=== PATIENT | male | born 1950 | race Caucasian/White ===

== ENCOUNTER 2024-10-05 12:55 | Outpatient (CLI) | payer OTHER, SELFPAY ==
[2024-10-05 14:01] LABS: Basophils Percent Auto 0.6 % (0.2-1.2); Eosinophils Absolute Auto 0.2 K/mm3 (0-0.3); Eosinophils Percent Auto 2.4 % (0-4.4); Hematocrit 44.6 % (42.0-52.0); Hemoglobin 15.2 g/dL (14.0-18.0); Immature Granulocyte Absolute 0.09 K/mm3 (0.00-0.031); Immature Granulocyte Percent A 1.3 % (0-0.5); Lymphocytes Absolute Auto 1.12 K/mm3 (0.9-3.2); Lymphocytes Percent Auto 15.8 % (18.3-44.2); Mean Corpuscular HGB Conc 34.1 g/dl (32-36); Mean Corpuscular Hemoglobin 29.9 pg (26-34); Mean Corpuscular Volume 87.8 fl (80-100); Mean Platelet Volume 8.7 fl (7.4-10.4); Monocytes Absolute Auto 0.6 K/mm3 (0.1-0.6); Monocytes Percent Auto 8.7 % (2.6-8.5); Neutrophils Absolute Auto 5.1 K/mm3 (1.3-6.7); Neutrophils Percent Auto 71.2 % (45.5-73.1); Platelet Count Result 197 k/mm3 (150-375); Red Blood Count 5.08 M/mm3 (4.6-6.20); Red Cell Distribution Width 12.7 % (11.5-14.5); White Blood Count 7.1 K/mm3 (4.5-10.0)
[2024-10-05 14:15] LABS: Anion Gap 10 mmol/L (4-12); Blood Urea Nitrogen 26 mg/dL (9-20); Calcium 9.4 mg/dL (8.4-10.2); Carbon Dioxide 26 mmol/L (22-30); Chloride 106 mmol/L (98-107); Estimated Glomerular Filt Rate 56; Glucose 92 mg/dL (65-110); Potassium 4.1 mmol/L (3.4-5.0); Sodium 142 mmol/L (137-145)
== END 2024-10-05 12:56 | disposition home or self-care (01) ==
LOC: ANHSURGERY 13:00
PROVIDERS: Visit Provider Urology
DX: R39.15 Urgency of urination (principal)
CPT/HCPCS: 36415; 80048; 85025; 87086

== ENCOUNTER 2024-12-21 00:07 | Day surgery (SDC) | payer MEDICARE, SELFPAY ==
--- NOTE | 2024-12-13 13:20 | PC.NURSE ---
Report to the Outpatient Waiting Room, entrance under the green pavilion located off [facility], at time _8:30 AM on date _12/21/24 . Planned Procedure Time: _10:30 AM .? Time changes happen often and if your time is changed the preop area will call you the afternoon before. - You and your visitor will be asked to self-screen and do not enter if you have any COVID symptoms. Please call surgeon if you need to reschedule. - A mask is optional within the hospital at this time. Patients may have clear liquids (water, carbonated beverages, clear teas, apple juice) until 3 hours prior to surgery ( 7:30 AM) with a maximum of 20 ounces. - No food from midnight until time of surgery and no smoking, or chewing tobacco (or any form of nicotine). No chewing gum, candy or mints. Take only the following medications with a SIP of water on the morning of surgery: ___METOPROLOL DO NOT STOP ANY OF YOUR OTHER PRESCRIPTION MEDICATIONS PRIOR TO SURGERY EXCEPT THE FOLLOWING Hold all vitamins and supplements for 3 days per anesthesiologist. Medications to discontinue per physician _PT STATES ___ELIQUIS 3 DAYS PRE OP_PER DR HOOVER Date to take last dose 12/17/24 Please no make-up, nail dutch, hairspray, perfume, deodorant, or body powder the day of surgery.? No jewelry (including any body piercings) or valuables the day of surgery, leave them at home.? Please take a shower or bath the night before, or the morning of, surgery with an antibacterial soap.? Wear comfortable, loose fitting clothing.? Children are encouraged to wear pajamas. - Jewelry must be removed prior to entering the operating room.? Rings and piercings that are not removed may be cut off. - The hospital will not accept responsibility for valuables.? - Please leave all valuables, including medications, at home the day of surgery. If you are going home after surgery, a licensed substitute bus driver must drive you home.? - NO public transportation without another adult if you receive anesthesia. - We recommend that an adult stay with you for 24 hours following discharge. - We also recommend that you do not drive, make important decision, drink alcoholic beverages, or take any drugs that were not prescribed by your health care provider for at least 24 hours after your discharge time. For Pediatric surgeries, we recommend two adults accompany the child home. Follow any additional instructions given to you from your surgeon. Telephone instructions given to ___PATIENT and asked if any additional questions and then verbalized understanding. Patient advised to call surgeon office or pre surgery nurse liaison [phone] if any additional questions.
[2024-12-13 14:06] VITALS: BMI 32.3
--- NOTE | 2024-12-20 19:39 | P.PNAN_ITS ---
Anes - Initial Pre Proc Eval Procedure: Operation Date: 12/21/24 10:30 Proposed Procedures p Trans Urethral Resection Bladder Tumor - Juan Cee MD s Cystoscopy, Possible Retrograde with Bilateral Stents Placement - Juan Cee MD Date/Time: 12/20/24 19:39 Surgeon: Juan Cee MD Pre Op Diagnosis: Bladder Lesion Patient Data Age: 74 Gender: M Height: 1.78 m Weight: 102.1 kg Allergies Allergy/AdvReac Type Severity Reaction Status Date / Time No Known Allergies Allergy Verified 12/13/24 13:22 Home Medications ?Medication ?Instructions ?Recorded ?Confirmed ?Type apixaban 5 mg tablet (Eliquis) 5 mg PO Q12H 10/04/24 12/13/24 History dapagliflozin propanediol 10 mg 10 mg PO DAILY 10/04/24 12/13/24 History tablet (Farxiga) metoprolol succinate 50 mg 50 mg PO .MORNING 10/04/24 12/13/24 History tablet,extended release 24 hr oxybutynin chloride 15 mg 15 mg PO DAILY 10/04/24 12/13/24 History tablet,extended release 24 hr sacubitril 24 mg-valsartan 26 mg 1 tablet PO BID 10/04/24 12/13/24 History tablet (Entresto) spironolactone 25 mg tablet 25 mg PO .MORNING 10/04/24 12/13/24 History atorvastatin 80 mg tablet 80 mg PO DAILY 12/13/24 12/13/24 History lisinopril 20 mg tablet 20 mg PO DAILY 12/13/24 12/13/24 History metoprolol succinate 25 mg 25 mg PO DAILY 12/13/24 12/13/24 History tablet,extended release 24 hr Patient hx anesthesia problems: none Family hx anesthesia problems: none Results Review: All pre-operative results and documents have been reviewed as part of the pre- operative evaluation. [facility] Past Medical History Medical History DEBORAH (obstructive sleep apnea) History of heart attack Hypertension CVA (cerebral vascular accident) CAD (coronary artery disease) Atrial fibrillation Surgical History Surgical History History of coronary artery stent placement x3 2012 Social History Social History Smoking status: Never smoker Living arrangements: with family Additional living arrangements comments: SPOUSE Spiritual care concerns: No Anes - Eval Final PreProcedure Day of Procedure 12/20/24 19:39 Patient weight: obese Heart: regular rate and rhythm Lungs: clear to auscultation Airway: Mallampati scale class III Neurological: alert and oriented Last oral intake: >/= 8 hours ASA classification: III Emergent: no Anesthetic plan: proceed Anesthesia type and monitoring: general LMA and standard monitoring Results Review: All pre-operative results and documents have been reviewed as part of the pre- operative evaluation. Informed Consent: The patient's anesthetic plan and its attendant risks and benefits were discussed with the patient/family/POA. Questions were solicited and answers provided to the satisfaction of the patient/family/POA.
[2024-12-21] VITALS (13 sets, daily range): BP systolic 98–137; BP diastolic 76–98; PULSE 69–98; RESP 10–20; TEMP 36.2–37.1; O2SAT 94–100; BMI 33.6
--- NOTE | ~2024-12-21 | XR_ITS ---
EXAMINATION: XR retrograde pyelogram BI DATE: 12/21/2024 11:01 INDICATION: Bilateral retrograde pyelograms TECHNIQUE: 8 fluoroscopic images of the abdomen and pelvis were obtained during procedure performed b filiberto Cee. Radiologist was not present for the imaging or procedure. The amount of fluoroscopy t lashell used during this procedure was 0.4 minutes. Total DAP was 0.732 mGym^2. COMPARISON: None. FINDINGS: Images demonstrate cannulation and retrograde contrast injection into the bilateral ureters and renal collecting system. No hydronephrosis on either the left or right. No filling defects, strictures or urothelial irregularities identified. IMPRESSION: 1. Fluoroscopy utilized during bilateral retrograde pyelogram study demonstrating no filling defects, strictures or urothelial irregularity is. See procedure note for further detail. Reviewed, dictated and finalized at location A. IMPRESSION: 1. Fluoroscopy utilized during bilateral retrograde pyelogram study demonstrati ng no filling defects, strictures or urothelial irregularity is. See procedure note for further detail.
--- OUTSIDE RECORDS SUMMARY | 2024-12-21 00:09 | XMS_ITS | Encounter Summary ---
Author Organization [facility] Address [facility] [place] [address] Care Team Providers Care Regulatory Consultant Name Role Phone Valeriano Steinberg MD Primary Care Provider Sheila Christian MD Unavailable [phone] Rohith Thomas MD Unavailable [phone] Encounter Details Date Type Department Care Team (Late st Contact Info) Description 09/04/2020 Prep for Procedure [facility] [address] [place], [place] [id number] [place] [address] [place] [address] Social History Tobacco Use Types Packs/Day Years Used Date Smoking Tobacco: Never Smokeless Tobacco: Never Alcohol Use Standard Drinks/Week Comments No 0 (1 standard drink = 0.6 oz pur e alcohol) Sex and Gender Information Value Date Recorded Sex Assigned at Male 11/23/2024 1:13 PM CDT Legal Sex Male 9:24 PM CDT Gender Identity Not on file Sexual Orientation Not on file COVID-19 Exposure Response Date Recorded In the last month, have you been in contact with someone who was confirmed or suspected to have Coronavirus / COVID-19? 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 documented as of this encounter Plan of Treatment Upcoming Encounters Date Type Department Care Team (Late st Contact Info) Description 04/21/2025 10:45 AM CDT Office Visit [facility] [address] [place] [id number] Camacho Jenkins MD [address] [place] [id number] documented as of this encounter Results * MRSA SCREENING (09/09/2020 7:59 AM [employer] HA[employer] DRIVER) SPEC DESCRIPTION NASAL 09/09/2020 7:55 AM [employer] HA[employer]MAT DRIVER [facility] SPECIAL REQUESTS NO SPECIAL REQUEST 09/09/2020 7:55 AM [employer] HA[employer] DRIVER [facility] CULTURE RESULT NO MRSA ISOLATED 09/10/2020 11:44 AM [employer] HAZ[employer] DRIVER [facility] SPECIMEN FROM INTERNAL NOSE / Unknown 09/09/2020 7:59 AM [employer] HAZMAT DRIVER 09/09/2020 8:00 AM [employer] HA[employer] DRIVER Fran Austin DO MICROBIOLOGY - GENERAL ORDERABL ES Final Result Performing Organization Address [facility]/State/ZIP Co de Phone Number [facility] [address] [place] [address], * PRE-SURGICAL/PRE-PROCEDURE CORONAVIRUS (COVID 19) (09/09/2020 7:59 AM LOC[employer] HAZMAT DRIVER) CORONAVIRUS SARS COV 2 PCR (RESP) NOT DETECTED NOT DETECTED 09/10/2020 2:37 PM LOC[employer] COMPANY HAZMAT DRIVER [facility] Comment: A Not Detected (negative) test result for this test means that SARS- CoV-2 RNA was not present in the specimen above the limit of detection. A negative result does not rule out the possibility of COVID-19 and should not be used as the sole basis for treatment or patient management decisions. If COVID-19 is still suspected, based on exposure history together with other clinical findings, re-testing should be considered in consultation with public health authorities. Laboratory test results should always be considered in the context of clinical observations and epidemiological data in making a final diagnosis and patient management decisions. Please review the Fact Sheets and FDA authorized labeling available for health care providers and patients using the following websites: [email or web address]://[email or web address]/[email or web address]-[email or web address]/HCP/NAAT/fact-sheet2 [email or web address]://[email or web address].Intrusic/home/Covid-19/Patients/NAAT/ fact-sheet2 This test has been authorized by the FDA under an Emergency Use Authorization (EUA) for use by authorized laboratories. Due to the current public health emergency, [facility] is receiving a high volume of samples from a wide variety of swabs and media for COVID-19 testing. In order to serve patients during this public health crisis, samples from appropriate clinical sources are being tested. Negative test results derived from specimens received in non-commercially manufactured viral collection and transport media, or in media and sample collection kits not yet authorized by FDA for COVID-19 testing should be cautiously evaluated and the patient potentially subjected to extra precautions such as additional clinical monitoring, including collection of an additional specimen. Methodology: Nucleic Acid Amplification Test (NAAT) includes RT-PCR or TMA Additional information about COVID-19 can be found at the [facility] website: www.[facility].Intrusic/Covid19. Test performed at [facility] [id number] [place] [phone] Director: DAI DUNN DO,MPH FIRST TEST NO 09/09/2020 7:54 AM [facility] EMPLOYED IN HEALTHCARE NO 09/09/2020 7:54 AM [facility] SYMPTOMATIC DEFINED BY CDC NO 09/09/2020 7:54 AM [facility] DATE OF SYMPTOM ONSET UNKNOWN 09/09/2020 11:37 AM [facility] HOSPITALIZATION STATUS NO 09/09/2020 7:54 AM [facility] PATIENT IN ICU NO 09/09/2020 7:54 AM [facility] RESIDENT OF [facility] NO 09/09/2020 7:54 AM [facility] UNKNOWN 09/09/2020 11:37 AM [employer] HA[employer]MAT DRIVER [facility] PATIENT'S RACE WHITE OR 09/09/2020 7:54 AM LOC[employer] HAZMAT DRIVER [facility] ETHNICITY NONHISPANIC 09/09/2020 7:54 AM [employer] HAZ[employer] DRIVER [facility] SOURCE (QST) NASOPHARYNGEAL SWAB 09/09/2020 7:54 AM [employer] HAZMAT DRIVER [facility] NASOPHARYNGEAL SWAB / Unknown 09/09/2020 7:59 AM [employer] HAZ[employer] DRIVER us Fran Austin DO MICROBIOLOGY - GENERAL ORDERABL ES Final Result [facility] [address] [place] [address], [facility] [address] [place] [address], documented in this encounter Visit Diagnoses Diagnosis Preop testing- Primary Preoperative examination, unspecified documented in this encounter Additional Health Concerns Infection Onset Date Last Indicated Resolved Time COVID-19 Rule Out 09/09/2020 09/09/2020 09/10/2020 2:38 PM LOCAL COMPANY HAZMAT DRIVER COVID-19 Rule Out 12/26/2021 12/26/2021 12/26/2021 12:33 PM CDT documented as of this encounter Care Teams Regulatory Consultant Relationship Specialty Start Date End Date Valeriano Steinberg MD [address] [place] [address] PCP - General 10/07/17 Rohith Thomas MD [address] [place] [address] PCP - [facility] - [facility] Attributed Provider 11/13/18 09/15/20 Sheila Christian MD [address] [place] [address] CARDIOVASCULAR DISEASE 10/07/17 documented as of this encounter
--- OUTSIDE RECORDS SUMMARY | 2024-12-21 00:09 | XMS_ITS | Encounter Summary ---
Author Organization [facility] Address [facility] [place] [address] Care Team Providers Care Title Closer Name Role Phone Valeriano Steinberg MD Primary Care Provider [phone] Sheila Christian MD Unavailable [phone] Encounter Details Date Type Department Care Team (Late st Contact Info) Description 05/06/2024 Pre-Procedure Call [facility] [address] [place], [place] [phone] Ivelisse Gill RN Social History Tobacco Use Types Packs/Day Years Used Date Smoking Tobacco: Never Passive Smoke Exposure: Never Smokeless Tobacco: Never Comments:Never Smoked Alcohol Use Standard Drinks/Week Comments Not Currently 0 (1 standard drink = 0.6 oz pure alcohol) once a month (if a bbq). 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 Answer Date of Assessment Author Status No 09/12/2020 11:23 AM LAMINATING MACHINE OFFBEARER Acti ve * Do you have serious difficulty walking or climbing stairs? Answer Date of Assessment Author Status No 09/12/2020 11:23 AM Kathryn Palmer RN Active * Do you have difficulty dressing or bathing? Answer Date of Assessment Author Status No 09/12/2020 11:23 AM Kathryn Palmer RN Active * Because of a physical, mental, or emotional condition, do you have difficulty doing errands alone such as visiting a doctor's office or shopping? Answer Date of Assessment Author Status No 09/12/2020 11:23 AM Kathryn Palmer RN Active documented as of this encounter Mental Status * Because of a physical, mental, or emotional condition, do you have serious difficulty concentrating, remembering, or making decisions? 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
--- OUTSIDE RECORDS SUMMARY | 2024-12-21 00:09 | XMS_ITS | Clinical Summary ---
Author Organization [facility] Address [address] [place] [address] Phone Care Team Providers Care Mash Filter Operator Name Role Phone Unavailable Primary Care Provider Unavailabl e Allergies No known active allergies Medications apixaban (ELIQUIS) 5 mg tablet Take by mouth 2 times daily. Active atorvastatin (LIPITOR) 80 mg tablet Take 80 mg by mouth daily. Active oxyBUTYnin (DITROPAN XL) 15 mg Extended Release 24 hour tablet Take 15 mg by mouth daily. Active dapagliflozin propanediol (FARXIGA) 10 mg Tablet Take 10 mg by mouth daily. Active hydrocortisone (CORTAID) 1 % Cream Apply to affected area 2 times daily as needed for Itching. itching Active ketoconazole (NIZORAL) 2 % Cream Apply to affected area 2 times daily. Active spironolactone (ALDACTONE) 25 mg tablet Take 25 mg by mouth daily. Active metoprolol succinate (TOPROL XL) 25 mg Extended Release 24 hour tablet Take 1 Tablet (25 mg) by mouth daily. 30 Tablet 12/02/2024 2:20 PM CDT 12/04/19 25 Active sacubitriL-vals aly (Entresto) 24-26 mg Tablet Take 0.5 Tablets by mouth 2 times daily. 30 Tablet 12/03/19 25 Active metoprolol succinate (TOPROL XL) 50 mg Extended Release 24 hour tablet Take 50 mg by mouth daily. 025 Discontinued sacubitriL-vals aly (Entresto) 24-26 mg Tablet Take by mouth 2 times daily. 025 Discontinued Active Problems Problem Noted Date Diagnosed Date Facial numbness 12/01/2024 Blurry vision 12/01/2024 History of stroke without residual deficits 11/13 Paroxysmal atrial fibrillation 12/01/2024 DEBORAH (obstructive sleep apnea) 12/01/2024 Combined systolic and diastolic heart failure Pre-syncope 12/01/2024 Coronary artery disease Hypertension CRI (chronic renal insufficiency) Encounters Date Type Department Care Team Description 12/07/2024 External Device Data STL ABSTRACTION Provider, Abstract 12/07/2024 External Device Data ST[facility] ABSTRACTION Provider, Abstract 12/07/2024 External Device Data ST[facility] ABSTRACTION Provider, Abstract 12/01/2024 3:50 AM CDT - 12/02/2024 2:18 PM CDT Hospital Encounter [facility] [address] [address] Geri Shin DO Song, Caroline, MD Facial numbness Discharge Disposition: Home or Self Care 12/01/2024 Travel from Last 3 Months Social History Tobacco Use Types Packs/Day Years Used Date Smoking Tobacco: Never Smokeless Tobacco: Never Tobacco Cessation:Counseling Given: Not Answered Feeling Safe Answer Date Recorded Are you in a relationship wi th someone who hurts you emotionally and/or physically? No 12/01/2024 Food Insecurity Answer Date Recorded Social/Environmental Concerns No concerns Transportation Needs Answer Date Record ed Social/Environmental Concerns No concerns Housing Stability Answer Date Recorded Social/Environmental Concerns No concerns Utility Needs Answer Date Recorded Social/Environmental Concerns No concerns Sex and Gender Information Value Date Recorded Sex Assigned at Not on file Legal Sex Male 11:49 PM CDT Gender Identity Not on file Sexual Orientation Not on file Last Filed Vital Signs Vital Sign Reading Time Taken Comments Blood Pressure 121/64 12/02/2024 6:54 AM CDT Pulse 64 12/02/2024 6:54 AM CDT Temperature 36.6 C (97.9 F) 12/02/2024 6:54 AM CDT Respiratory Rate 16 12/02/2024 6:54 AM CDT Oxygen Saturation 96% 12/02/2024 6:54 AM CDT Inhaled Oxygen Concentration - - Weight 61.2 kg (134 lb 14.4 oz) 12/02/2024 5:00 AM CDT Height 177.8 cm (5' 10 ) 12/01/2024 4:13 PM CDT Body Mass Index 19.36 12/01/2024 4:13 PM CDT Plan of Treatment Health Maintenance Due Date Last Done Comments DTAP/TDAP/TD VACCINES (1 - Tdap) 1969 COLORECTAL SCREENING 1995 Colorectal Cancer Screening 1995 FIT-DNA Q 3 years 1995 FIT/FOBT Q 1 year 1995 Flex Sig/CT Colonography Q 5 years 1995 PNEUMOCOCCAL VACCINE 50+ YEARS (1 of 1 - PCV) 01/06/20 ZOSTER VACCINE (1 of 2) 01/06/2000 RSV VACCINE (60+ or ) (1 - Risk 60-74 years 1-dose series) 2010 INFLUENZA VACCINE (#1) 2024 Medical Devices Implanted Type Area Security Operations Engineer Device Identifier Shelf Expiration Date Model / Serial / Lot Stent Stent Heart Procedures Procedure Name Priority Date/Time Associated Diagnosis Comments TELEMETRY REPORT 12/03/2024 9:47 AM CDT COMPREHENSIVE METABOLIC PANEL Routine 12/02/2024 4:58 AM CDT CBC WITH DIFFERENTIAL Routine 12/02/2024 4:58 AM CDT MRI BRAIN WO CONTRAST Routine 12/01/2024 5:41 PM CDT TRANSGLUTAMINASE AB IGG/IGA Routine 12/01/2024 1:29 PM CDT ANCA VASCULITIDES WITH MPO AND PR3 Routine 12/01/2024 1:29 PM CDT CHRISTOPHER SCREEN W/REFLEX Routine 12/01/2024 1 :29 PM CDT GARY ANTIBODIES (SM AND SM/PSYCHIATRIC THERAPIST) Routine 12/01/2024 1:29 PM CDT ANGIOTENSIN CONVERTING ENZYME Routine 12/01/2024 1:29 PM CDT TSH REFLEXIVE Routine 12/01/2024 1:29 PM CDT VITAMIN B12 AND FOLATE Routine 5 1:29 PM CDT TROPONIN 6 HR, 5TH GEN Timed Study 5 10:41 AM CDT POC GLUCOSE Routine 12/01/2024 8:48 AM CDT TROPONIN 2 HR, 5TH GEN Timed Study 5 6:59 AM CDT TROPONIN BASELINE, 5TH GEN Stat 12/01/2024 5:01 AM CDT LIPID PANEL Routine 12/01/2024 5:01 AM CDT HEMOGLOBIN A1C Routine 12/01/2024 5:01 AM CDT TROPONIN BASELINE, 5TH GEN Stat 12/01/2024 5:01 AM CDT PT EVAL AND TREAT Routine 12/01/2024 4:5 0 AM CDT OT EVAL AND TREAT Routine 12/01/2024 4:5 0 AM CDT from Last 3 Months Results * TELEMETRY REPORT (12/03/2024 9:47 AM CDT) us Provider Scanning ECG ORDERABLES Final Result * (ABNORMAL) CBC WITH DIFFERENTIAL (12/02/2024 4:58 AM CDT) [facility] WBC 4.7 4.0 - 11.0 K/uL 12/02/2024 5:26 AM CDT [facility] [place] RBC 4.93 4.60 - 6.20 M/uL 12/02/2024 5:26 AM CDT [facility] HEMOGLOBIN 14.8 13.5 - 17.0 g/dL 12/02/2024 5:26 AM CDT [facility] HEMATOCRIT 41.9 40.0 - 54.0 % 12/02/2024 5:26 AM CDT [facility] [place] MCV 85.0 80.0 - 98.0 fL 12/02/2024 5:26 AM T [employer] [facility] [place] MCH 30.0 26.0 - 34.0 pg 12/02/2024 5:26 AM T [facility] [place] MCHC 35.3 31.0 - 37.0 g/dL 12/02/2024 5:26 AM [facility] [employer] [facility] [place] RDW 12.9 11.5 - 14.5 % 12/02/2024 5:26 AM T [facility] [place] RDW-STDEV 39.7 34.0 - 54.0 fL 12/02/2024 5:26 AM [facility] [employer] [facility] [place] PLATELETS 136(L) 150 - 400 K/uL 12/02/2024 5:26 AM T [employer] [facility] [place] MPV 8.7 8.5 - 12.5 fL 12/02/2024 5:26 AM [facility] [employer] [facility] [place] NEUTROPHILS 64 50 - 70 % 12/02/2024 5:26 AM [facility] [employer] [facility] [place] LYMPHOCYTES 20 20 - 40 % 12/02/2024 5:26 AM [facility] [employer] [facility] [place] MONOCYTES 10(H) 2 - 8 % 12/02/2024 5:26 AM [facility] [employer] [facility] [place] EOSINOPHILS 5(H) 1 - 3 % 12/02/2024 5:26 AM [facility] [employer] [facility] [place] BASOPHILS 1 0 - 1 % 12/02/2024 5:26 AM [facility] [employer] [facility] [place] IMMATURE GRANULOCYTES 1 0 - 2 % 12/02/2024 5:26 AM [facility] [employer] [facility] [place] NEUTROPHIL ABSOLUTE 3.02 1.80 - 7.70 K/uL 12/02/2024 5:26 AM [facility] [employer] [facility] [place] LYMPHOCYTE ABSOLUTE 0.95(L) 1.00 - 3.30 K/uL 12/02/2024 5:26 AM T [employer] [facility] [place] MONOCYTE ABSOLUTE 0.48 0.00 - 0.80 K/uL 12/02/2024 5:26 AM T [facility] [place] EOSINOPHIL ABSOLUTE 0.23 0.00 - 0.45 K/uL 12/02/2024 5:26 AM CDT [facility] BASOPHILS ABSOLUTE 0.03 0.00 - 0.20 K/uL 12/02/2024 5:26 AM CDT [facility] [place] IMMATURE GRANULOCYTES ABSOLUTE 0.03 0.00 - 0.31 K/uL 12/02/2024 5:26 AM CDT [facility] Blood Venipuncture / Unknown 12/02/2024 4:58 AM CDT 12/02/2024 5:24 AM CDT us Ann Albrecht MD HEMATOLOGY ORDERABLES Final Res ult [facility] [place] CLIA # [id number] [address] [place] [address] * (ABNORMAL) COMPREHENSIVE METABOLIC PANEL (12/02/2024 4:58 AM CDT) SODIUM 142 136 - 145 mmol/L 12/02/2024 6:26 AM [facility] POTASSIUM 4.4 3.5 - 5.1 mmol/L 12/02/2024 6:26 AM [facility] Comment:Moderate hemolysis p resent. Can cause significant falsely elevated result. Redraw if indicated. CHLORIDE 106 98 - 107 mmol/L 12/02/2024 6:26 AM [facility] [place] CO2 23 22 - 29 mmol/L 12/02/2024 6:26 AM [facility] CALCIUM 9.0 8.8 - 10.2 mg/dL 12/02/2024 6:26 AM [facility] BUN 20 8 - 23 mg/dL 12/02/2024 6:26 AM [facility] CREATININE 1.20(H) 0.67 - 1.17 mg/dL 12/02/2024 6:26 AM [facility] Comment:The GFR result is no t clinically significant on patients <18 or >70 years of age. GLUCOSE 105(H) 74 - 99 mg/dL 12/02/2024 6:26 AM T [facility] TOTAL PROTEIN 6.2(L) 6.6 - 8.7 g/dL 12/02/2024 6:26 AM [facility] ALBUMIN 4.1 4.0 - 5.0 g/dL 12/02/2024 6:26 AM [facility] BILIRUBIN TOTAL 0.9 <=1.2 mg/dL 12/02/2024 6:26 AM [facility] ALKALINE PHOSPHATASE 54 40 - 129 U/L 12/02/2024 6:26 AM [facility] AST 26 <=41 U/L 12/02/2024 6:26 AM [facility] Comment:Hemolysis present. R esult may be falsely elevated. ALT 20 <=41 U/L 12/02/2024 6:26 AM [facility] Comment:Hemolysis present. R esult may be falsely elevated. GFR >60 mL/min/1.7 3 sq meter 12/02/2024 6:26 AM [facility] Comment:eGFR calculated with 2020 CKD-EPI equation. Vegetarian diet, extremely high or low muscle mass, and may affect results. Cystatin C with Glomerular Filtration Rate is a suitable alternative for these patients. ANION GAP 13 5 - 15 mmol/L 12/02/2024 6:26 AM [facility] Blood Venipuncture / Unknown 12/02/2024 4:58 AM CDT 12/02/2024 5:33 AM CDT us Ann Albrecht MD CHEMISTRY ORDERABLES Final Resu lt [facility] CLIA # [id number] [address] [place] [address] * MRI BRAIN WO CONTRAST (12/01/2024 5:41 PM CDT) Anatomical Region Laterality Modality Head Magnetic Resonan ce 12/01/2024 5:42 PM CDT Impressions 12/01/2024 5:47 PM CDT IMPRESSION: 1. No acute intracranial abnormality. DICTATION LOCATION: Location [address] [place] [address] Narrative 12/01/2024 5:47 PM CDT EXAMINATION: MRI BRAIN WO CONTRAST HISTORY: Transient ischemic attack (TIA). See Reason for Exam TECHNIQUE: MRI of the brain was performed without contrast according to standard protocol. FINDINGS: No prior study is available for comparison at the time of this dictation. No evidence of acute or chronic hemorrhage is identified. No evidence of acute cerebral infarction is seen. There is mild cerebral volume loss with associated ex vacuo ventricular dilatation. No mass effect or midline shift is seen. Periventricular white matter FLAIR hyperintensities likely represent sequelae of chronic small vessel ischemic disease. The corpus callosum and sella appear normal. The posterior fossa, brainstem, and craniocervical junction appear normal. Bilateral lens replacement. Trace paranasal sinus disease. Trace mastoid fluid. Normal flow voids are demonstrated in the carotid arteries and basilar artery. The calvarium and visualized cervical spine appear normal. Procedure Note Yossi Marley MD - 12/01/2024 EXAMINATION: MRI BRAIN WO CONTRAST HISTORY: Transient ischemic attack (TIA). See Reason for Exam TECHNIQUE: MRI of the brain was performed without contrast according to standard protocol. FINDINGS: No prior study is available for comparison at the time of this dictation. No evidence of acute or chronic hemorrhage is identified. No evidence of acute cerebral infarction is seen. There is mild cerebral volume loss with associated ex vacuo ventricular dilatation. No mass effect or midline shift is seen. Periventricular white matter FLAIR hyperintensities likely represent sequelae of chronic small vessel ischemic disease. The corpus callosum and sella appear normal. The posterior fossa, brainstem, and craniocervical junction appear normal. Bilateral lens replacement. Trace paranasal sinus disease. Trace mastoid fluid. Normal flow voids are demonstrated in the carotid arteries and basilar artery. The calvarium and visualized cervical spine appear normal. IMPRESSION: 1. No acute intracranial abnormality. DICTATION LOCATION: Location - [facility] us Geri Shin DO MR ORDERABLES Final Result * ANCA VASCULITIDES WITH MPO AND PR3 (12/01/2024 1:29 PM CDT) MYELOPEROXIDASE AB <1.0 2024 12:56 PM CDT [facility] Comment: Value Interpretation ----- <1.0 No Antibody Detected > or = 1.0 Antibody Detected Autoantibodies to myeloperoxidase (MPO) are commonly associated with the following small-vessel vasculitides: microscopic polyangiitis, polyarteritis nodosa, Churg-Yossi syndrome, necrotizing and crescentic glomerulonephritis and occasionally granulomatosis with polyangiitis (GPA, Aram's). The perinuclear IFA pattern, (p-ANCA) is based largely on autoantibody to myeloperoxidase which serves as the primary antigen. These autoantibodies are present in active disease. ANCA-C, PROTEINASE 3 AB (PR3) <1.0 12/06/2024 12:56 PM CDT [facility] Comment: Value Interpretation ----- <1.0 No Antibody Detected > or = 1.0 Antibody Detected Autoantibodies to proteinase-3 (NC-3) are accepted as characteristic for granulomatosis with polyangiitis (GPA, Aram's), and are detectable in 95% of the histologically proven cases. The cytoplasmic IFA pattern, (c-ANCA), is based largely on autoantibody to NC-3 which serves as the primary antigen. These autoantibodies are present in active disease. Blood Venipuncture / Unknown 12/01/2024 1:29 PM CDT 12/01/2024 2:11 PM CDT Narrative [facility] - 12/06/2024 12:56 PM CDT Performing Organization Information: Site ID: [place] Name: [facility] Address: [address] [place] [address] Director: Hayden Bonilla MD Performing Organization Information: Site ID: [place]ANCY Name: [id number] Address: [address] [place] [address] Director: Hadyen Bonilla MD Felix Gomes MD CHEMISTRY ORDERABLES Edited Result - Final [facility] [phone] * TSH REFLEXIVE (12/01/2024 1:29 PM CDT) Pathologist [facility] TSH 1.25 0.27 - 4.20 uIU/mL 12/01/2024 2:04 PM CDT [facility] [place] Blood Venipuncture / Unknown 12/01/2024 1:29 PM CDT 12/01/2024 1:44 PM CDT Felix Gomes MD CHEMISTRY ORDERABLES Final Result Performing Organization Address [facility] Co de Phone Number [facility] [employer] [facility] CLIA # [id number] [facility] [address] [place] [address] * VITAMIN B12 AND FOLATE (12/01/2024 1:29 PM CDT) Pathologist [facility] VITAMIN B12 349 232 - 1,245 pg/mL 12/01/2024 2:52 PM CDT [facility] FOLATE, SERUM 14.7 >7.3 ng/mL 12/01/2024 2:52 PM CDT [facility] Blood Venipuncture / Unknown 12/01/2024 1:29 PM CDT 12/01/2024 2:21 PM CDT Felix Gomes MD CHEMISTRY ORDERABLES Final Result Performing Organization Address [facility] Co de Phone Number [facility] [employer] [facility] CLIA # [id number] [facility] [address] [place] [address] * TRANSGLUTAMINASE AB IGG/IGA (12/01/2024 1:29 PM CDT) Pathologist [facility] TRANSGLUTAMINASE IGG AB <1.0 U/mL 12/11/2024 2:33 AM CDT [facility] Comment: Value Interpretation ----- <15.0 Antibody not detected > or = 15.0 Antibody detected TRANSGLUTAMINASE IGA AB <1.0 U/mL 12/11/2024 2:33 AM CDT [facility] Comment: Value Interpretation ----- <15.0 Antibody not detected > or = 15.0 Antibody detected Blood Venipuncture / Unknown 12/01/2024 1:29 PM CDT 12/01/2024 2:11 PM CDT Narrative [facility] - 12/11/2024 2:33 AM CDT Performing Organization Information: Site ID: Name: [id number] Address: [address] [place] [address] Director: Saw Barnes Felix Gomes MD CHEMISTRY ORDERABLES Final Result [facility] [phone] * GARY ANTIBODIES (SM AND SM/PSYCHIATRIC THERAPIST) (12/01/2024 1:29 PM CDT) [facility] IGG AB <1.0 NEG <1.0 NEG AI 12/11/2024 2:33 AM CDT [facility] GARY ABS, SM/PSYCHIATRIC THERAPIST AB <1.0 NEG <1.0 NEG AI 12/11/2024 2:33 AM CDT [facility] Blood Venipuncture / Unknown 12/01/2024 1:29 PM CDT 12/01/2024 2:11 PM CDT Narrative [facility] - 12/11/2024 2:33 AM CDT Performing Organization Information: Site ID: [id number] Name: [facility] [employer] Address: [address] [place] [address] Director: Hayden Bonilla MD Performing Organization Information: Site ID: [place] Name: [id number] Address: [address] [place] [address] Director: Hayden Bonilla MD us Felix Gomes MD CHEMISTRY ORDERABLES Edited Result - Final Performing Organization Address [facility]/ZIP Co de Phone Number [facility] [phone] * ANGIOTENSIN CONVERTING ENZYME (12/01/2024 1:29 PM CDT) Pathologist [facility] ANGIOTENSIN CONVERTING ENZYME 28 9 - 67 U/L 12/06/2024 12:56 PM CDT [facility] Blood Venipuncture / Unknown 12/01/2024 1:29 PM CDT 12/01/2024 2:11 PM CDT Narrative [facility] - 12/06/2024 12:56 PM CDT Performing Organization Information: Site ID: [place] Name: [employer] Address: [address] [place] [address] Director: Hayden Bonilla MD Performing Organization Information: Site ID: [place] Name: [employer] Address: [address] [place] [address] Director: Hayden Bonilla MD Felix Gomes MD CHEMISTRY ORDERABLES Edited Result - Final Performing Organization Address [facility] Co de Phone Number [facility] [phone] * CHRISTOPHER SCREEN W/REFLEX (12/01/2024 1:29 PM CDT) [facility] CHRISTOPHER SCREEN NEGATIVE NEGATIVE 12/06/2024 12:56 PM CDT [facility] Comment: CHRISTOPHER IFA is a first line screen for detecting the presence of up to approximately 150 autoantibodies in various autoimmune diseases. A negative CHRISTOPHER IFA result suggests an CHRISTOPHER-associated autoimmune disease is not present at this time, but is not definitive. If there is high clinical suspicion for Sjogren's syndrome, testing for anti-SS-A/Ro antibody should be considered. Anti-Yuliana-1 antibody should be considered for clinically suspected inflammatory myopathies. AC-0: Negative International Consensus on CHRISTOPHER Patterns (https://doi.org/10.1515/zejo-9431-5449) For additional information, please refer to http://education.Hit the Mark/faq/IEU219 (This link is being provided for informational/ educational purposes only.) Blood Venipuncture / Unknown 12/01/2024 1:29 PM CDT 12/01/2024 2:11 PM CDT Narrative [facility] - 12/06/2024 12:56 PM CDT Performing Organization Information: Site ID: [place] Name: [id number] Address: [address] [address] Director: Hayden Bonilla MD Felix Gomes MD CHEMISTRY ORDERABLES Final Result [facility] [phone] * TROPONIN 6 HR, 5TH GEN (12/01/2024 10:41 AM CDT) TROPONIN T, 6 HR 5TH GEN 14 <=15 ng/L 12/01/2024 11:04 AM CDT [facility] [place] DELTA 6HR TROPONIN T 1 See Interp. 12/01/2024 11:04 AM CDT [facility] Blood Venipuncture / Unknown 12/01/2024 10:41 AM CDT 12/01/2024 10:51 AM CDT [facility] - 12/01/2024 11:04 AM CDT Troponin Detectable but normal range. Delta indeterminate. us Geri Shin DO CHEMISTRY ORDERABLES Final Resu lt [facility] [employer] [facility] CLIA # [id number] [facility] [address] [place] [address] * (ABNORMAL) POC GLUCOSE (12/01/2024 8:48 AM CDT) GLUCOSE POC 100(H) 74 - 99 mg/dL 12/01/2024 8:48 AM CDT [employer] [facility] SPECIMEN SOURCE, GLUCOSE POC Whole Blood 12/01/2024 8:48 AM CDT [facility] Blood, whole 12/01/2024 8:48 AM CDT 12/01/2024 8:57 AM CDT Ann Albrecht MD POINT OF CARE TESTING Final Res ult [facility] [employer] [facility] CLIA # [id number] [address] [place] [address] * TROPONIN 2 HR, 5TH GEN (12/01/2024 6:59 AM CDT) TROPONIN T, 2 HR 5TH GEN 14 <=15 ng/L 12/01/2024 7:30 AM CDT [facility] [employer] [facility] DELTA 2HR TROPONIN T 1 See Interp. 12/01/2024 7:30 AM CDT [facility] [employer] [facility] Blood Venipuncture / Unknown 12/01/2024 6:59 AM CDT 12/01/2024 7:12 AM CDT Narrative [facility] [employer] [facility] - 12/01/2024 7:30 AM CDT Troponin Detectable but normal range. Delta not changing. Geri Shin DO CHEMISTRY ORDERABLES Final Resu lt Performing Organization Address City/[facility]/ZIP Co de Phone Number [facility] [employer] [facility] CLIA # [id number] [address] [place] [address] * TROPONIN BASELINE, 5TH GEN (12/01/2024 5:01 AM CDT) Only the most recent of2 resultswithin the time period is included. TROPONIN T, BASELINE 5TH GEN 13 <=15 ng/L 12/01/2024 6:05 AM CDT [facility] [employer] [facility] Blood Venipuncture / Unknown 12/01/2024 5:01 AM CDT 12/01/2024 5:50 AM CDT Narrative [facility] - 12/01/2024 6:05 AM CDT Troponin Detectable but normal range. Geri Shin DO CHEMISTRY ORDERABLES Final Resu lt Performing Organization Address City/[facility]/ZIP Co de Phone Number [facility] [id number] [address] [address] * HEMOGLOBIN A1C (12/01/2024 5:01 AM CDT) HEMOGLOBIN A1C 5.3 <=5.6 % 12/01/2024 5:54 AM CDT [facility] [place] EST. AVG GLUCOSE, A1C 105 mg/dL 12/01/2024 5:54 AM CDT [facility] [place] Blood Venipuncture / Unknown 12/01/2024 5:01 AM CDT 12/01/2024 5:42 AM CDT Narrative [facility] [place] - 12/01/2024 5:54 AM CDT HGB A1C INTERPRETATION NORMAL: <5.7% PRE-DIABETES: 5.7 - 6.4% DIABETES: 6.5% OR GREATER Geri Shin DO CHEMISTRY ORDERABLES Final Resu lt Performing Organization Address City/[facility]/ZIP Co de Phone Number [facility] CLIA # [id number] [facility] [address] [place] [address] * LIPID PANEL (12/01/2024 5:01 AM CDT) CHOLESTEROL 125 <200 mg/dL 12/01/2024 6:05 AM CDT [facility] [place] TRIGLYCERIDE 58 <150 mg/dL 12/01/2024 6:05 AM CDT [facility] HDL 52 40 - 59 mg/dL 12/01/2024 6:05 AM CDT [facility] LDL CALCULATED 61 <100 mg/dL 12/01/2024 6:05 AM CDT [facility] NON-HDL CHOLESTEROL 73 <130 mg/dL 12/01/2024 6:05 AM CDT [facility] Blood Venipuncture / Unknown 12/01/2024 5:01 AM CDT 12/01/2024 5:50 AM CDT Narrative [facility] [place] - 12/01/2024 6:05 AM CDT TOTAL CHOLESTEROL mg/dL Desirable <200 Borderline high 200-239 High >=240 TRIGLYCERIDES mg/dL Normal <150 Borderline high 150-199 High 200-499 Very high >=500 HDL CHOLESTEROL mg/dL Low <40 Normal 40-59 Desirable >=60 NON HDL CHOLESTEROL mg/dL Optimal <130 Near Optimal 130-159 Borderline High 160-189 Very High >=190 CALCULATED LDL mg/dL LDL <70, OPTIMAL if have Atherosclerotic cardiovascular disease (ASCVD) or intermediate or higher (>7.5%) 10 year risk of ASCVD including most adults with diabetes. LDL <100, Optimal in adult patients with low (<7.5%) 10 year ASCVD risk LDL 100-160, Suboptimal LDL >160, High LDL >190, Very high LDL calculated using the Friedewald equation. ATPIII Guidelines Reference Ranges for Lipid Panels (NCEP/AMA) . us Geri Shin DO CHEMISTRY ORDERABLES Final Resu lt [facility] [place] CLIA # [id number] [facility] [address] [place] [id number] from Last 3 Months Insurance RX [employer] Medicare Part D [employer] PPO MCR Advance Directives For more information, please contact: [phone] * Full Code (Latest Code Status on File) Date Activated Date Inactivated Comments 12/01/2024 4:46 AM 12/02/2024 4:18 PM
--- OUTSIDE RECORDS SUMMARY | 2024-12-21 00:09 | XMS_ITS | Clinical Summary ---
Author Organization [facility] Address [address] [place] [address] Care Team Providers Care Director Of Outpatient Services Name Role Phone Valeriano Steinberg MD Primary Care Provider Sheila Christian MD Unavailable [phone] Allergies No known active allergies Medications apixaban 5 MG tablet Take 1 tablet (5 mg total) by mouth 2 (two) times daily. Active atorvastatin 80 MG tablet Take 1 tablet (80 mg total) by mouth nightly at bedtime. 30 tablet 2 Active oxybutynin XL (DITROPAN XL) 15 MG 24 hr tablet Take 15 mg by mouth daily. Active dapagliflozin (FARXIGA) 10 MG tabletIndicatio ns:Chronic combined systolic and diastolic congestive heart failure (CMS/HCC HHS/HCC) Take 1 tablet (10 mg total) by mouth daily. 90 tablet 3 4 Active sacubitril-vals aly (ENTRESTO) 24-26 MG tablet Take 1 tablet by mouth 2 (two) times daily. 180 tablet 3 5 Active metoprolol succinate ER (TOPROL-XL) 50 MG 24 hr tablet Take 1 tablet (50 mg total) by mouth daily. 90 tablet 3 5 Active spironolactone (ALDACTONE) 25 MG tablet Take 1 tablet (25 mg total) by mouth daily. 90 tablet 3 5 Active sacubitril-vals aly (ENTRESTO) 24-26 MG tablet Take 1 tablet by mouth 2 (two) times daily. 180 tablet 3 4 11/27/19 25 Discontinu ed(Reorder ) spironolactone (ALDACTONE) 25 MG tablet Take 1 tablet (25 mg total) by mouth daily. 90 tablet 3 4 11/27/19 25 Discontinu ed(Reorder ) metoprolol succinate ER (TOPROL-XL) 50 MG 24 hr tablet Take 1 tablet (50 mg total) by mouth daily. 90 tablet 3 4 11/27/19 25 Discontinu ed(Reorder ) Hospital, Clinic, or Other Facility Administered Medication Ordered Dose Route Frequency Start Date End Date Status triamcinolone acetonide (KENALOG-40) injection 80 mgIndications:Primary osteoarthritis of right knee 80 mg IX Once 12/30/2022 Active Active Problems Problem Noted Date Diagnosed Date Chronic combined systolic an d diastolic congestive heart failure ([facility]) 07/21/2024 Rupture of right long head biceps tendon, initia l encounter 11/14/2022 Nontraumatic complete tear of right rotator cuff 11/14/2022 Tenderness of brachioradialis muscle 03/27/2022 Assessment & Plan (03/27/2022 6:14 PM CDT): Gradually increase activities as tolerated. Follow-up as needed. Primary hypertension 01/11/2022 Mixed hyperlipidemia 01/11/2022 Acute ischemic stroke ([facility]) 12/30/19 22 Nontraumatic complete tear of left rotator cuff 08/14/2021 Assessment & Plan (08/18/2021 7:06 PM BOGGER OPERATOR): Along with the proximal bicep tendon patient was referred to Dr. Darnell Impingement syndrome of left shoulder 08/14/2021 Osteoarthritis of left acromioclavicular joint 1 10/14/2020 Injury of tendon of long hea d of biceps, left, subsequent encounter 08/14/2021 Assessment & Plan (03/27/2022 6:13 PM CDT): Gradually increase activities as tolerated. Partial tear to the long head of the biceps. Not wanting to proceed with any type of tenotomy. Biceps muscle strain, left, initial encounter Assessment & Plan (07/07/2021 1:49 PM CDT): Proximal left bicep tendon rupture. Recommend MRI. Patient considering surgical intervention referral to Dr. Darnell. Possible tenodesis. MRI of the shoulder to make sure there is no labral tear or rotator cuff tear. Lower extremity weakness 05/17/2021 Assessment & Plan (05/17/2021 7:49 PM CDT): We discussed the risks, benefits and alternatives. No symptoms of claudication. Intermittent numbness and tingling down the lower extremities. Weakness. Occasional low back pain. Failing physical therapy, nonsteroidal anti-inflammatories, attempted weight loss and activity modification. Recommend MRI lumbar spine.. Lumbar back pain with radicu lopathy affecting right lower extremity 05/17/2021 Assessment & Plan (08/18/2021 7:07 PM BOGGER OPERATOR): Referral to spine surgery Assessment & Plan (07/07/2021 1:51 PM CDT): Positive MRI. Positive EMG/NCV. Recommend pain management. S/P TKR (total knee replacement), left 0 Overview (09/28/2020): 09/12/2020 Assessment & Plan (05/17/2021 7:48 PM CDT): Continue progressive range of motion and strengthening per total knee arthroplasty protocol Assessment & Plan (02/12/2021 10:29 AM CDT): Continue progressive range of motion and strengthening per total knee arthroplasty protocol. Assessment & Plan (12/11/2020 9:48 AM CDT): Continue progressive range of motion and strengthening per total neuroplasty protocol. Follow-up in 3 months for repeat evaluation and x-ray. Call or return with questions or concerns. Assessment & Plan (10/30/2020 10:04 AM BOGGER OPERATOR): Continue progressive range of motion and strengthening. Physical therapy recommends 4-6 more weeks. Make sure he continues to work on full extension. May transition to aqua therapy. Follow-up in 6 weeks. 1 more refill of pain medications. Assessment & Plan (09/28/2020 3:12 PM BOGGER OPERATOR): Continue progressive range of motion and strengthening per total knee arthroplasty protocol. May now get it wet. Finish out home health and home physical therapy for 1 more week before transitioning to outpatient physical therapy with aqua therapy. Continue with the ice machine. Refill of pain medicines. Follow-up in 4 weeks for repeat evaluation Osteoarthritis 09/04/2020 Overview (09/04/2020): Added automatically from request for surgery [id number] BMI 30.0-30.9,adult 09/04/2020 Assessment & Plan (05/17/2021 7:48 PM CDT): We discussed the adverse effects of weight on osteoarthritis of the knee. For every 1 pound loss, 4 to 6 pounds of stress is relieved from the knee. We discussed low carbohydrate diet to help with weight loss. 80% of weight loss is through diet. Assessment & Plan (02/12/2021 10:13 AM CDT): We discussed the adverse effects of weight on osteoarthritis of the knee. For every 1 pound loss, 4 to 6 pounds of stress is relieved from the knee. We discussed low carbohydrate diet to help with weight loss. 80% of weight loss is through diet. Assessment & Plan (09/04/2020 12:05 PM BOGGER OPERATOR): We discussed the adverse effects of weight on osteoarthritis of the knee. For every 1 pound loss, 4 to 6 pounds of stress is relieved from the knee. We discussed low carbohydrate diet to help with weight loss. 80% of weight loss is through diet. Primary osteoarthritis of right knee 10/21/2019 Overview (09/12/2020): Last Assessment & Plan: We discussed the risks, benefits and alternatives of treatment options for osteoarthritis of the knee. From least invasive to most invasive: The only thing to slow the progression of osteoarthritis is weight loss. For every pound lost 4 to 6 pounds of stress is relieved from the knee. Formal physical therapy to help with flexion, extension, mobility and strength. Unloading braces to unload the affected side. The possibility of TENs unit to control pain and swelling. Nonsteroidal anti-inflammatories with the potential of cardiac and GI upset. Steroid and Visco supplement injection. And eventual total knee arthroplasty. Patient understands I will not be here after August 15, 2020. Patient wants to continue with total knee arthroplasty on the left with me is the surgeon. He will consider follow up with another physician. Last Assessment & Plan: We discussed the risks, benefits and alternatives of treatment options for osteoarthritis of the knee. From least invasive to most invasive: The only thing to slow the progression of osteoarthritis is weight loss. For every pound lost 4 to 6 pounds of stress is relieved from the knee. Formal physical therapy to help with flexion, extension, mobility and strength. Unloading braces to unload the affected side. The possibility of TENs unit to control pain and swelling. Nonsteroidal anti-inflammatories with the potential of cardiac and GI upset. Steroid and Visco supplement injection. And eventual total knee arthroplasty. Visco supplement injected today Assessment & Plan (01/26/2024 1:10 PM CDT): Recommendation at this time: We discussed the risks, benefits, as well as the alternatives. We did review some of his labs. All seem appropriate. Hemoglobin A1c was 5.5. Albumin was normal. All questions were answered. Injection tolerated well. He wants to get set up for [facility] Total knee Arthroplasty on the right on May 18. Assessment & Plan (12/29/2023 2:59 PM CDT): Recommendation at this time: went over the risks, benefits as well as the alternatives. Steroid was injected to the right knee today. Tolerated it well. Will try to get him pre-approved for viscosupplementation. Patient will be seen back once viscosupplementation is pre-approved. Assessment & Plan (09/29/2023 3:46 PM BOGGER OPERATOR): Recommendation at this time: went over the risks, benefits as well as the alternatives. Patient is not interested in surgical intervention at this time. He received a steroid injection to the right knee today. Patient will be seen back in three months. Assessment & Plan (03/31/2023 2:50 PM CDT): We discussed the risks, benefits, and alternatives. The only thing proven to slow the progression of osteoarthritis is weight loss. Every pound lost relieves 4 to 6 pounds of stress across the knee. We discussed unloading braces. Formal physical therapy to help with flexibility, mobility, and strength. We discussed TENS units. Nonsteroidal anti-inflammatories as well as Tylenol and pain medication and their side effects. We discussed steroid versus Visco supplement injection. We discussed eventual total knee arthroplasty. Steroid was injected. We'll see him back in 3 months. He has a flank pain on the right. Consistent with the history of previous urinary tract infections. We'll get him to start on bactrim. If there's no improvement, he does need to follow up with his primary care. Assessment & Plan (12/31/2022 7:55 AM CDT): We discussed the risks, benefits, and alternatives. The only thing proven to slow the progression of osteoarthritis is weight loss. Every pound lost relieves 4 to 6 pounds of stress across the knee. We discussed unloading braces. Formal physical therapy to help with flexibility, mobility, and strength. We discussed TENS units. Nonsteroidal anti-inflammatories as well as Tylenol and pain medication and their side effects. We discussed steroid versus Visco supplement injection. We discussed eventual total knee arthroplasty. Recommendation at this time, we did a steroid injection into his right knee today. We had rotator cuff arthropathy to the right shoulder that's being currently treated by Dr. Hall. Assessment & Plan (07/06/2022 8:02 PM CDT): We discussed the risks, benefits and alternatives. The only thing proven to slow the progression of osteoarthritis is weight loss. Every pound lost relieves 4 to 6 pounds of stress across the knee. We discussed unloading braces. Formal physical therapy to help with flexibility, mobility and strength. We discussed TENS units. Nonsteroidal anti-inflammatories as well as Tylenol and pain medication and their side effects. We discussed steroid versus Visco supplement injection. We discussed eventual total knee arthroplasty. Steroid injected today Follow-up in 3 months Assessment & Plan (03/27/2022 6:12 PM CDT): We discussed the risks, benefits and alternatives. The only thing proven to slow the progression of osteoarthritis is weight loss. Every pound lost relieves 4 to 6 pounds of stress across the knee. We discussed unloading braces. Formal physical therapy to help with flexibility, mobility and strength. We discussed TENS units. Nonsteroidal anti-inflammatories as well as Tylenol and pain medication and their side effects. We discussed steroid versus Visco supplement injection. We discussed eventual total knee arthroplasty. Synvisc injected today Follow-up in 3 months Assessment & Plan (12/18/2021 10:12 AM CDT): We discussed the risks, benefits and alternatives. The only thing proven to slow the progression of osteoarthritis is weight loss. Every pound lost relieves 4 to 6 pounds of stress across the knee. We discussed unloading braces. Formal physical therapy to help with flexibility, mobility and strength. We discussed TENS units. Nonsteroidal anti-inflammatories as well as Tylenol and pain medication and their side effects. We discussed steroid versus Visco supplement injection. We discussed eventual total knee arthroplasty. Steroid injected today Follow-up in 3 months Preapproval for viscosupplementation Assessment & Plan (08/18/2021 7:07 PM BOGGER OPERATOR): We discussed the risks, benefits and alternatives. The only thing proven to slow the progression of osteoarthritis is weight loss. Every pound lost relieves 4 to 6 pounds of stress across the knee. We discussed unloading braces. Formal physical therapy to help with flexibility, mobility and strength. We discussed TENS units. Nonsteroidal anti-inflammatories as well as Tylenol and pain medication and their side effects. We discussed steroid versus Visco supplement injection. We discussed eventual total knee arthroplasty. So far the patient is doing well would like to see if pain management or referral to Dr. Gutierrez for the low back would be of benefit. Assessment & Plan (07/07/2021 1:50 PM CDT): We discussed the risks, benefits and alternatives. The only thing proven to slow the progression of osteoarthritis is weight loss. Every pound lost relieves 4 to 6 pounds of stress across the knee. We discussed unloading braces. Formal physical therapy to help with flexibility, mobility and strength. We discussed TENS units. Nonsteroidal anti-inflammatories as well as Tylenol and pain medication and their side effects. We discussed steroid versus Visco supplement injection. We discussed eventual total knee arthroplasty. Unfortunately the patient also has radiculopathy on the right from the lumbar spine as well. Does have an appointment with pain management on July 17. He was concerned that steroid injection to the lumbar spine might delay surgery to the right knee if needed. We discussed that steroid injections into the knee directly would push off surgery by 3 months but epidural or nerve root injections with not. Follow-up in 6 weeks Assessment & Plan (05/17/2021 7:48 PM CDT): We discussed the risks, benefits and alternatives. The only thing proven to slow the progression of osteoarthritis is weight loss. Every pound lost relieves 4 to 6 pounds of stress across the knee. We discussed unloading braces. Formal physical therapy to help with flexibility, mobility and strength. We discussed TENS units. Nonsteroidal anti-inflammatories as well as Tylenol and pain medication and their side effects. We discussed steroid versus Visco supplement injection. We discussed eventual total knee arthroplasty. Steroid injected today. Follow-up in 3 months Assessment & Plan (02/12/2021 10:13 AM CDT): We discussed the risks, benefits and alternatives. The only thing proven to slow the progression of osteoarthritis is weight loss. Every pound lost relieves 4 to 6 pounds of stress across the knee. We discussed unloading braces. Formal physical therapy to help with flexibility, mobility and strength. We discussed TENS units. Nonsteroidal anti-inflammatories as well as Tylenol and pain medication and their side effects. We discussed steroid versus Visco supplement injection. We discussed eventual total knee arthroplasty. Steroid injected today. Follow-up in 3 months Coronary artery disease involving [place] heart 0 11/27/2017 Assessment & Plan (07/07/2021 1:50 PM CDT): Therefore cannot use nonsteroidal anti-inflammatories S/P coronary artery stent placement 11/27/2017 Hyperlipidemia, mixed 11/27/2017 Benign essential hypertension 03/27/2012 PAF (paroxysmal atrial fibrillation) (CMS/HCC HH S/HCC) Neck pain BPH (benign prostatic hyperplasia) Assessment & Plan (08/18/2021 7:05 PM BOGGER OPERATOR): Patient would like referral to Dr. Gomez or Dr. Zhao for elevated PSA Resolved Problems Problem Noted Date Diagnosed Date Resolved Date Complex tear of medial menis cus of right knee as current injury 11/22/2019 02/12/2021 Overview (09/12/2020): January 26, 2020. Diagnostic and operative arthroscopy with partial medial meniscectomy and chondroplasty. Last Assessment & Plan: Possibility that is he had a ruptured Bazzi cyst verses deep vein thrombosis. At this point in time because of the increased pain and swelling about the right leg in not using crutches for ambulation recommend venous Doppler. Encounters Date Type Department Care Team Description 12/02/2024 Scan [facility] [address] [place] [address] Scanned, Doc Pccl 11/26/2024 Telephone [facility] [address] [place] [address] Camacho Jenkins MD Medication Request 11/23/2024 Telephone [facility] [address] [place] [address] Camacho Jenkins MD Information 11/18/2024 1:00 PM BOGGER OPERATOR Office Visit [facility] [place] [address] Camacho Jenkins MD 11/18/2024 Travel 10/19/2024 Telephone [facility] [address] [place] [address] Camacho Jenkins MD Results (Mild improvement in EF. Continue current medical management. /Pt voice understanding ) 10/13/2024 Scan [facility] [address] [place] [address] Scanned, Doc Pccl 10/12/2024 Scan [facility] [address] [place] [address] Scanned, Doc Pccl 10/07/2024 Telephone [facility] [address] [place] [address] Camacho Jenkins MD Results; Question 09/29/2024 Scan [facility] [address] [place] [address] Scanned, Doc Pccl 09/28/2024 Telephone [facility] [address] [place] [id number] Camacho Jenkins MD Schedule Test (Pt is scheduled for 10/25/24 @ [facility] 11:00 am for echo. ) from Last 3 Months Family History Medical History Relation Comments COPD Father COPD Mother Relation Status Comments Father Mother Social History Tobacco Use Types Packs/Day Years Used Date Smoking Tobacco: Never Passive Smoke Exposure: Never Smokeless Tobacco: Never Tobacco Cessation:Counseling Given: Not Answered Comments:Never Smoked Alcohol Use Standard Drinks/Week Comments [...] Sign Reading Time Taken Comments Blood Pressure 146/78 11/18/2024 1:12 PM BOGGER OPERATOR Pulse 106 11/18/2024 1:12 PM BOGGER OPERATOR Temperature 37.1 C (98.8 F) 01/26/2024 9:46 AM CDT Respiratory Rate 20 01/26/2024 9:46 AM CDT Oxygen Saturation 95% 11/18/2024 1:12 PM BOGGER OPERATOR Inhaled Oxygen Concentration - - Weight 106.3 kg (234 lb 6.4 oz) 11/18/2024 1:12 PM BOGGER OPERATOR Height 177.8 cm (5' 10 ) 11/18/2024 1:12 PM BOGGER OPERATOR Body Mass Index 33.63 11/18/2024 1:12 PM BOGGER OPERATOR Plan of Treatment Upcoming Encounters Date Type Department Care Team (Late st Contact Info) Description 04/21/2025 10:45 AM CDT [facility] [address] [place] [address] Camacho Jenkins MD [address] [place] [phone] Health Maintenance Due Date Last Done Comments Colorectal Cancer Screening Colonoscopy (10 Years) 1950 Hepatitis C 01/06/1968 Zoster Vaccines (1 of 2) 01/06/2000 RSV Immunization or 60+ Years (1 - Risk 60-74 years 1-dose series) 2010 Annual Medicare Wellness Visit 2015 DTaP, Tdap and Td Vaccines (1 - Tdap) 05/11/2020 05/10/2020, 03/10/2015 ASCVD LDL 07/23/2022 07/23/2021, 1112/2015, 07/19/2016, Additional history exists COVID-19 Vaccine ( season) 2024 PHQ-2 (Physician [place]) 09/15/2024 Pneumococcal Vaccine: 65+ Years Completed 04/14/2019, 04/09/2018 Meningococcal B Vaccine Aged Out No l onger eligible based on patient's age to complete this topic Meningococcal Vaccine Aged Out No sarah joselyn eligible based on patient's age to complete this topic RSV Immunizations Under 20 Months Aged Out No longer eligible based on patient's age to complete this topic Medical Devices Implanted Type Area Food And Beverage Associate Device Identifier Shelf Expiration Date Model / Serial / Lot Urolift - [id number] Implanted:Qty: 3 on 12/26/2021 by Ramakrishna Gomez MD at [facility] GC960[facility] / / [id number] Urolift - [id number] Implanted:Qty: 1 on 12/26/2021 by Ramakrishna Gomez MD at [facility] Urology [employer] NM183-5 / / [id number] [place] Mv - Bone Cement With Gentamicin Implanted:Qty: 1 on 09/12/2020 by Fran Austin DO at [facility] Left: Knee [id number] 03/18/2022 600-10-100 / / [id number] [place] Mv - Bone Cement With Gentamicin Implanted:Qty: 1 on 09/12/2020 by Fran Austin DO at [facility] Left: Knee [id number] 03/18/2022 600-10-100 / / [id number] Jessy Ii Patellar Component Implanted:Qty: 1 on 09/12/2020 by Fran Austin DO at [facility] Left: Knee 06/14/2030 [id number] / / [id number] Component Femoral Oicinium Clemons-Nephew Size 8 - [id number] Implanted:Qty: 1 on 09/12/2020 by Fran Austin DO at [facility] Left: Knee [employer] - [place] [id number] 08/29/2029 [id number] / / [id number] Cruciate Retaining Narrow Oxinium Femoral Component Implanted:Qty: 1 on 09/12/2020 by Fran Austin DO at [facility] Left: Knee 05/04/2029 [id number] / / [id number] Legion Xlpe Dished Articular Insert Implanted:Qty: 1 on 09/12/2020 by Fran Austin DO at [facility] Left: Knee 06/03/2030 [id number] / / [id number] Procedures Procedure Name Priority Date/Time Associated Diagnosis Comments USE ECHOCARDIOGRAM Routine 10/12/2024 Chronic combined systolic and diastolic congestive heart failure (CMS/HCC HHS/HCC) LIPID PANEL Routine 07/23/2021 from Last 3 Months or Most Recently Relevant to Health Maintenance Results * USE ECHOCARDIOGRAM (10/12/2024) Anatomical Region Laterality Modality Cardiac Echocardiogram Camacho Jenkins MD ECHO Final Result * LIPID PANEL (07/23/2021) CHOLESTEROL 168 HDL 49 TRIGLYCERIDES 57 CHOL/HDL RATIO 3.4 LDL (CALCULATED) 108 VLDL CALCULATION 11.40 07/23/2021 us Valeriano Steinberg MD LABORATORY Final Result from Last 3 Months or Most Recently Relevant to Health Maintenance Insurance AETNA AETNA Advance Directives * Full Code (Latest Code Status on File) Date Activated Date Inactivated Comments 09/12/2020 11:15 AM 09/14/2020 2:51 PM Care Teams Director Of Outpatient Services Relationship Specialty Start Date End Date Valeriano Steinberg MD [address] [address] PCP - General 10/07/17 Sheila Christian MD [address] [place] [id number] CARDIOVASCULAR DISEASE 10/07/17
--- OUTSIDE RECORDS SUMMARY | 2024-12-21 00:09 | XMS_ITS | Clinical Summary ---
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 Gender Identity Not on file Sexual Orientation Not on file Plan of Treatment Health Maintenance Due Date Last Done Comments CT Colonography 1950 Colonoscopy 1950 Colorectal Cancer Screening 1950 FIT-DNA 1950 FIT 1950 FOBT 1950 Sigmoidoscopy 1950 DTaP,Tdap,and Td Vaccines (1 - Tdap) 1957 Zoster Series Vaccines (1 of 2) 01/06/2000 AMB Pneumococcal 65+ yrs (1 of 1 - PCV) 2015 Fall Risk Assessment 2015 Medicare Annual Wellness Visit 2015 COVID-19 Vaccine ( - 2023-2 5 season) 2024 Advance Care Planning 09/15/2024 RSV Vaccines and 60 Years or Older (1 - 1-dose 75+ series) 2025 Influenza Vaccine (Season Ended) 2025 HIB Vaccines Aged Out No longer eligi ble based on patient's age to complete this topic HPV Vaccines Aged Out No longer eligi ble based on patient's age to complete this topic Hepatitis A Vaccines Aged Out No long er eligible based on patient's age to complete this topic Hepatitis B Vaccines Aged Out No long er eligible based on patient's age to complete this topic IPV Vaccines Aged Out No longer eligi ble based on patient's age to complete this topic Meningococcal ACWY Vaccine Aged Out N o longer eligible based on patient's age to complete this topic Meningococcal B Vaccine Aged Out No l onger eligible based on patient's age to complete this topic RSV Vaccines <20 Months Aged Out No l onger eligible based on patient's age to complete this topic
--- OUTSIDE RECORDS SUMMARY | 2024-12-21 00:09 | XMS_ITS | Encounter Summary ---
Author Organization [facility] Address [facility] [place] [address] Care Team Providers Care Cleaning Associate Name Role Phone Valeriano Steinberg MD Primary Care Provider [phone] Sheila Christian MD Unavailable [phone] Rohith Thomas MD Unavailable [phone] Encounter Details Date Type Department Care Team (Late st Contact Info) Description 09/05/2020 Prep for Procedure [facility] [address] [address] [facility] [address] [place] [address] [place] [address] [address] [place], [place] [id number] Social History Tobacco Use Types Packs/Day Years [...] COVID-19? No / Unsure 09/04/2020 7:36 AM NEUROCRITICAL CARE PHYSICIAN documented as of this encounter Plan of Treatment Upcoming Encounters Date Type Department Care Team (Late st Contact Info) Description 04/21/2025 10:45 AM CDT [facility] [address] [address] Camacho Jenkins MD [address] [place] [address] documented as of this encounter Visit Diagnoses Diagnosis Primary osteoarthritis of left knee- Primary Primary localized osteoarthrosis, lower leg documented in this encounter Additional Health Concerns Infection Onset Date Last Indicated Resolved Time COVID-19 Rule Out 09/09/2020 09/09/2020 09/10/2020 2:38 PM NEUROCRITICAL CARE PHYSICIAN COVID-19 Rule Out 12/26/2021 12/26/2021 12/26/2021 12:33 PM CDT documented as of this encounter Care Teams Cleaning Associate Relationship Specialty Start Date End Date Valeriano Steinberg MD [address] [address] PCP - General 10/07/17 Rohith Thomas MD [address] [place] [address] PCP - Med Group - [facility] Attributed Provider 11/13/18 09/15/20 Sheila Christian MD [address] [place] [address] CARDIOVASCULAR DISEASE 10/07/17 documented as of this encounter
--- OUTSIDE RECORDS SUMMARY | 2024-12-21 00:09 | XMS_ITS | Clinical Summary ---
Author Organization [facility] [place] Address [address] [place] [address] Care Team Providers Care Bargeman Name Role Phone Valeriano Steinberg MD Primary Care Provider [phone] Sheila Christian MD Unavailable [phone] Camacho Jenkins MD Unavailable Allergies No known active allergies Medications tamsulosin (FLOMAX) 0.4 mg extended release capsule 0.8 mg nightly 9 Active DILTIAZEM CD 120 mg 24 hr capsule Take 1 capsule (120 mg total) by mouth daily 9 Active lisinopril (PRINIVIL,ZESTR IL) 20 mg tablet Take 1 tablet (20 mg total) by mouth daily 9 Active atorvastatin (LIPITOR) 40 mg tablet Take 2 tablets (80 mg total) by mouth daily 60 tablet 11 2 Active Eliquis 5 mg tablet Take 1 tablet (5 mg total) by mouth 2 (two) times a day 60 tablet 11 2 Active cholecalciferol (VITAMIN D-3) 5,000 unit tablet Take 1 tablet (5,000 Units total) by mouth daily Active atorvastatin (LIPITOR) 80 mg tablet Take 1 tablet (80 mg total) by mouth nightly 4 Active vibegron (Gemtesa) 75 mg tablet Take 75 mg by mouth daily Active erythromycin (ILOTYCIN) ophthalmic ointment Apply in both eyes TID prn irritation. Apply to incisions TID until healed. 3.5 g 1 4 Active Active Problems Problem Noted Date Diagnosed Date Atrial fibrillation 11/14/2023 Hypertension 01/11/2022 Hyperlipidemia 01/11/2022 Coronary artery disease involving cap[place] grande heart 0 01/11/2022 Acute ischemic stroke 12/29/2021 Right medial tibial plateau fracture 07/03/2020 Assessment & Plan (07/03/2020 6:41 PM CDT): Continue medial unloading brace. Follow up in 6 weeks Right leg swelling 05/03/2020 Assessment & Plan (05/03/2020 11:27 AM CDT): Differential includes ruptured Bazzi cyst versus DVT. Right calf pain 05/03/2020 Assessment & Plan (05/03/2020 11:27 AM CDT): No evidence of infection or open wound. Positive Octavio and Krishan. Venous Doppler. Complex tear of medial menis cus of right knee as current injury 11/22/2019 Overview (02/16/2020): January 26, 2020. Diagnostic and operative arthroscopy with partial medial meniscectomy and chondroplasty. Assessment & Plan (05/03/2020 11:26 AM CDT): Possibility that is he had a ruptured Bazzi cyst verses deep vein thrombosis. At this point in time because of the increased pain and swelling about the right leg in not using crutches for ambulation recommend venous Doppler. Assessment & Plan (03/14/2020 7:44 PM CDT): States the pain that he had over the meniscal tears completely resolved he still has some soreness and tenderness. Aspiration and injection. Follow-up in 2 months. Assessment & Plan (02/16/2020 9:52 AM CDT): Stitches are removed. Increase activities as tolerated. Call or return with questions or concerns. Physician directed exercises are given. Follow up in 1 month if no improvement. Assessment & Plan (01/17/2020 3:20 PM CDT): Three options for meniscal treatment. Nothing, see if it improves over time. Treat conservatively as an osteoarthritis of the knee or diagnostic and operative arthroscopy with repair or partial excision. After going over the risks, benefits and alternatives patient is wanting to proceed with diagnostic operative arthroscopy and partial medial meniscectomy possible chondroplasty. Assessment & Plan (11/22/2019 8:32 AM CDT): We discussed patient's MRI results in clinic today. We also discussed the risks, benefits and alternatives of [...] the potential of cardiac and GI upset. We discussed the risks, benefits and alternatives. Patient elected to proceed with a right knee arthroscopy. Patient will follow up in OR. Primary osteoarthritis of right knee 10/21/2019 Assessment & Plan (07/03/2020 6:41 PM CDT): We discussed the risks, benefits and alternatives [...] Visco supplement injected today Assessment & Plan (05/22/2020 6:07 PM CDT): We discussed the risks, benefits and alternatives [...] supplement injection. And eventual total knee arthroplasty. Pre approval for viscosupplementation. Patient still having marked pain and swelling recommend MRI for evaluation of Bazzi's cyst and posterior structures. Assessment & Plan (02/16/2020 9:51 AM CDT): Doing well at present. Improved after knee arthroscopy. Continue progressive range of motion and strengthening Assessment & Plan (01/17/2020 3:19 PM CDT): We discussed the risks, benefits and alternatives [...] injection. And eventual total knee arthroplasty. Patient will begin with knee arthroscopy followed by conservative treatment for the arthritis. Assessment & Plan (11/22/2019 8:30 AM CDT): We discussed patient's MRI results in clinic today. We also discussed the risks, benefits and alternatives of [...] supplement injection. And eventual total knee arthroplasty. We discussed the risks, benefits and alternatives. Assessment & Plan (10/21/2019 10:05 PM POSITION CLASSIFICATION MANAGER): We discussed the risks, benefits and alternatives [...] supplement injection. And eventual total knee arthroplasty. Steroid injected today. Continue nonsteroidal anti-inflammatories. If no significant improvement consider MRI. Obesity 01/20/2017 Assessment & Plan (01/17/2020 3:20 PM CDT): We discussed the adverse effects of extra weight on osteoarthritis. The only thing proven to slow the progression of osteoarthritis as weight loss. Every 1 lb lost, relieves 4-6 lb of stress across the knee. Continue weight loss through diet and exercise. Consider low carbohydrate diet. Assessment & Plan (10/21/2019 10:05 PM POSITION CLASSIFICATION MANAGER): We discussed the adverse effects of obesity on osteoarthritis. The only thing proven to slow the progression of osteoarthritis as weight loss. Every 1 lb lost, relieves 4-6 lb of stress across the knee. Continue weight loss through diet and exercise. Consider low carbohydrate diet. Assessment & Plan (07/13/2019 10:39 AM CDT): Continue weight loss through diet and exercise Assessment & Plan (03/23/2019 9:35 AM CDT): Continue working with dietitian with portion control and activity. Patient is down 60 lb and is wanting to continue little bit more. Primary osteoarthritis of left knee 01/20/2017 Assessment & Plan (07/03/2020 6:42 PM CDT): We discussed the risks, benefits and alternatives [...] will consider follow up with another physician. Assessment & Plan (05/22/2020 6:06 PM CDT): We discussed the risks, benefits and alternatives [...] injection. And eventual total knee arthroplasty. Patient does realize that I will no longer be working for [employer] in 3 months. He still wants me to proceed with surgery and will follow up with another physician after surgery but requests me to do the surgery. We discussed standard instrumentation, custom cutting blocks and navigation. Patient wants to proceed with custom cutting blocks to potentially improve implant alignment and rotation over standard instrumentation that violates the intramedullary canal and potentially increases the risk of complications such as blood loss and fat embolism. The custom cutting blocks would avoid the larger incisions required to accommodate tracking devices in navigation and avoid perforation of the shaft for pin and tracker placement in addition to avoiding stress risers or fractures. Assessment & Plan (02/16/2020 9:51 AM CDT): We discussed the risks, benefits and alternatives [...] supplement injection. And eventual total knee arthroplasty. After going over the risks, benefits and alternatives all questions are answered. Synvisc-One is injected. Follow up in 3 months. Assessment & Plan (01/17/2020 3:19 PM CDT): We discussed the risks, benefits and alternatives [...] supplement injection. And eventual total knee arthroplasty. Pre approval for viscosupplementation and injection after knee arthroscopy on the right Assessment & Plan (11/22/2019 1:21 PM CDT): We discussed the risks, benefits and alternatives [...] supplement injection. And eventual total knee arthroplasty. Assessment & Plan (10/21/2019 10:04 PM POSITION CLASSIFICATION MANAGER): Doing well with current treatment. Right knee flared up. Steroid injected today. Follow-up in 3 months for viscosupplementation. We discussed the risks, benefits and alternatives [...] supplement injection. And eventual total knee arthroplasty. Assessment & Plan (07/13/2019 10:39 AM CDT): We discussed the risks, benefits and alternatives [...] supplement injection. And eventual total knee arthroplasty. Synvisc injected today. Follow-up in 3 months for possible steroid injection Assessment & Plan (03/23/2019 9:34 AM CDT): We discussed the risks, benefits and alternatives [...] supplement injection. And eventual total knee arthroplasty. After going over the risks, benefits and alternatives patient will proceed with a steroid injection today. Follow-up in 3 months for possible Visco supplementation. Surgical History Surgery Date Site/Laterality Comments DISTAL BICEPS TENDON REPAIR 01/13/2014 - 02/12/2014 Left CARDIAC STENT PLACEMENT PROSTATE SURGERY URETHRA SURGERY SKIN GRAFT KNEE ARTHROSCOPY 01/26/2020 Right CATARACT EXTRACTION BLEPHAROPLASTY Bilateral about 5yrs ago Medical History Medical History Date Comments Hypertension Urinary problem Myocardial infarction (HCC) Dyslipidemia Rheumatoid arteritis (HCC) Stroke (HCC) Family History Medical History Relation Name Comments Cancer Other Diabetes Neg Hx Glaucoma Neg Hx Retinal detachment Neg Hx Thyroid disease Neg Hx Relation Name Status Comments Other Social History Tobacco Use Types Packs/Day Years Used Date Smoking Tobacco: Never Passive Smoke Exposure: Never Smokeless Tobacco: Never Tobacco Cessation:Counseling Given: No Alcohol Use Standard Drinks/Week Comments Yes 0 (1 standard drink = 0.6 oz pur e alcohol) PHQ-2 Answer Date Recorded PHQ-2 Total Score (If total score is 3 or more points, staff should administer the PHQ-9) 0 12/31/2021 Sex and Gender Information Value Date Recorded Sex Assigned at Not on file Legal Sex Male 2:39 AM POSITION CLASSIFICATION MANAGER Gender Identity Not on file Sexual Orientation Not on file Occupation Industry Job Start Date Job End Date retired Not on file Not on file Not on file Obstetrics History Last Filed Vital Signs Vital Sign Reading Time Taken Comments Blood Pressure 116/81 11/11/2023 9:03 AM POSITION CLASSIFICATION MANAGER Pulse 73 11/11/2023 9:03 AM POSITION CLASSIFICATION MANAGER Temperature 36.8 C (98.2 F) 12/31/2021 11:34 AM CDT Respiratory Rate 18 12/31/2021 11:34 AM CDT Oxygen Saturation 93% 12/31/2021 11:34 AM CDT Inhaled Oxygen Concentration - - Weight 99.3 kg (219 lb) 11/11/2023 9:03 AM POSITION CLASSIFICATION MANAGER Height 177.8 cm (5' 10 ) 11/11/2023 9:03 AM POSITION CLASSIFICATION MANAGER Body Mass Index 31.42 11/11/2023 9:03 AM POSITION CLASSIFICATION MANAGER Plan of Treatment Health Maintenance Due Date Last Done Comments Colon Cancer Screening-Colonoscopy 1950 Hepatitis C Screening 1950 Hepatitis B Screening 01/06/1968 Zoster Vaccine (1 of 2) 01/06/2000 Well Visit 65+ 2015 DTaP/Tdap/Td Vaccine (1 - Tdap) 05/11/2020 0, 03/10/2015 Depression Screening 12/29/2022 12/29/2021 Fall Risk Assessment 12/31/2022 12/31/2021 Influenza Vaccine (#1) 2024 Pneumococcal vaccine 65+ Completed 04/14/2019, 03/16 Medical Devices Implanted Type Area Casino Host Device Identifier Shelf Expiration Date Model / Serial / Lot Countercepts Angio-Seal Vip Bondek-Plus 8fr .038in 70cm Hemostatic Latex Free [id number] - [id number] Implanted:Qty: 1 on 12[facility]29[facility] [id number] / / [id number] Insurance [facility] MEDICARE ADVANTAGE [facility] Address: [facility] [address] [place] [address] [facility] MED[facility] Advance Directives For more information, please contact: [phone] * Full Code (Latest Code Status on File) Date Activated Date Inactivated Comments 12/29/2021 10:45 AM 12/31/2021 7:18 PM Care Teams Bargeman Relationship Specialty Start Date End Date Steinberg, Valeriano J., MD [address] [place] [address] PCP - General Pediatrics 10/20/19 Sheila Christian MD [address] [place] [address] Referring Physician Internal Medicine 05/18/20 Camacho Jenkins MD [address] [place] [address] Cardiovascular Disease 04/07/24
--- OUTSIDE RECORDS SUMMARY | 2024-12-21 00:09 | XMS_ITS | Referral Summary ---
Author Organization [facility] [place] Address [address] [place] [address] Care Team Providers Care Supervisor Gate Services Name Role Phone Valeriano Steinberg MD Primary Care Provider [phone] Sheila Christian MD Unavailable [phone] Camacho Jenkins MD Unavailable Allergies No known [...] 01/11/2022 Hyperlipidemia 01/11/2022 Coronary artery disease involving [place] heart 0 01/11/2022 Acute ischemic stroke 12/29/2021 [...] alternatives. Assessment & Plan (10/21/2019 10:05 PM CERTIFIED PESTICIDE APPLICATOR): We discussed the risks, benefits and alternatives [...] diet. Assessment & Plan (10/21/2019 10:05 PM CERTIFIED PESTICIDE APPLICATOR): We discussed the adverse effects of obesity [...] I will no longer be working for [employer] in 3 months. He still wants [...] arthroplasty. Assessment & Plan (10/21/2019 10:04 PM CERTIFIED PESTICIDE APPLICATOR): Doing well with current treatment. Right knee [...] in 3 months for possible Visco supplementation. Social History Tobacco Use Types Packs/Day Years [...] on file Legal Sex Male 2:39 AM CERTIFIED PESTICIDE APPLICATOR Gender Identity Not on file Sexual Orientation Not on file Occupation Industry Job Start Date Job End Date retired Not on file Not on file Not on file Last Filed Vital Signs Vital Sign Reading Time Taken Comments Blood Pressure 116/81 11/11/2023 9:03 AM CERTIFIED PESTICIDE APPLICATOR Pulse 73 11/11/2023 9:03 AM CERTIFIED PESTICIDE APPLICATOR Temperature 36.8 C (98.2 F) 12/31/2021 11:34 AM CDT Respiratory Rate 18 12/31/2021 11:34 AM CDT Oxygen Saturation 93% 12/31/2021 11:34 AM CDT Inhaled Oxygen Concentration - - Weight 99.3 kg (219 lb) 11/11/2023 9:03 AM CERTIFIED PESTICIDE APPLICATOR Height 177.8 cm (5' 10 ) 11/11/2023 9:03 AM CERTIFIED PESTICIDE APPLICATOR Body Mass Index 31.42 11/11/2023 9:03 AM CERTIFIED PESTICIDE APPLICATOR Plan of Treatment Not on file Medical Devices Implanted Type Area Rotary Cutter Feeder Device Identifier Shelf Expiration Date Model / Serial / Lot Thinglink Angio-Seal Vip Bondek-Plus 8fr .038in 70cm Hemostatic Latex Free [id number] - [id number] Implanted:Qty: 1 on 12/29/2021 at [facility] [employer] 09/14/2022 [id number] / / [id number] Insurance [facility] MEDICARE ADVANTAGE [employer] MEDICARE Advance Directives For more information, please contact: [phone] * Full Code (Latest Code Status on File) Date Activated Date Inactivated Comments 12/29/2021 10:45 AM 12/31/2021 7:18 PM Care Teams Supervisor Gate Services Relationship Specialty Start Date End Date Valeriano Steinberg MD [address] [place] [address] PCP - General Pediatrics 10/20/19 Sheila Christian MD [address] [place] [address] Referring Physician Internal Medicine 05/18/20 Camacho Jenkins MD [address] [place] [address] Cardiovascular Disease 04/07/24
--- OUTSIDE RECORDS SUMMARY | 2024-12-21 00:09 | XMS_ITS | Encounter Summary ---
Author Organization [facility] Address [facility] [place] [address] Care Team Providers Care Wrecking Car Driver Name Role Phone Valeriano Steinberg MD Primary Care Provider [phone] Sheila Christian MD Unavailable [phone] Rohith Thomas MD Unavailable [phone] Encounter Details Date Type Department Care Team (Late st Contact Info) Description 09/04/2020 Prep for Procedure [facility] [address] [address] [facility] [address] [place] [address] [place] [address] [address] [place], [place] [phone] Social History Tobacco Use Types Packs/Day Years [...] COVID-19? No / Unsure 09/04/2020 7:36 AM AIRCRAFT POWERPLANT REPAIRER documented as of this encounter Plan of Treatment Upcoming Encounters Date Type Department Care Team (Late st Contact Info) Description 04/21/2025 10:45 AM CDT [facility] [address] [address] Camacho Jenkins MD [address] [place] [address] documented as of this encounter Visit Diagnoses Not on filedocumented in this encounter Additional Health Concerns Infection Onset Date Last Indicated Resolved Time COVID-19 Rule Out 09/09/2020 09/09/2020 09/10/2020 2:38 PM AIRCRAFT POWERPLANT REPAIRER COVID-19 Rule Out 12/26/2021 12/26/2021 12/26/2021 12:33 PM CDT documented as of this encounter Care Teams Wrecking Car Driver Relationship Specialty Start Date End Date Valeriano Steinberg MD [address] [address] PCP - General 10/07/17 Rohith Thomas MD [address] [place] [address] PCP - Med Group - [facility] Attributed Provider 11/13/18 09/15/20 Sheila Christian MD [address] [place] [phone] CARDIOVASCULAR DISEASE 10/07/17 documented as of this encounter
--- NOTE | 2024-12-21 07:32 | PM.IMHP ---
H&P: HPI History of Present Illness Date/Time: 12/21/24 07:32 Chief Complaint: bladder lesion Narrative: 74 yr old male with history of PVP and urolift with unusual appearing trigonal area and irritative voiding symptoms. Review of Systems Review of Systems: All systems reviewed & are unremarkable except as noted in HPI and [facility] Past Medical History Medical History DEBORAH (obstructive sleep apnea) History of heart attack Hypertension CVA (cerebral vascular accident) CAD (coronary artery disease) Atrial fibrillation Surgical History Surgical History History of coronary artery stent placement x3 2012 Social History Social History Smoking status: Never smoker Living arrangements: with family Additional living arrangements comments: [facility] Spiritual care concerns: No Meds Home Medications and Allergies Home Medications ?Medication ?Instructions ?Recorded ?Confirmed ?Type apixaban 5 mg tablet (Eliquis) 5 mg PO Q12H 10/04/24 12/13/24 History dapagliflozin propanediol 10 mg 10 mg PO DAILY 10/04/24 12/13/24 History tablet (Farxiga) metoprolol succinate 50 mg 50 mg PO .MORNING 10/04/24 12/13/24 History tablet,extended release 24 hr oxybutynin chloride 15 mg 15 mg PO DAILY 10/04/24 12/13/24 History tablet,extended release 24 hr sacubitril 24 mg-valsartan 26 mg 1 tablet PO BID 10/04/24 12/13/24 History tablet (Entresto) spironolactone 25 mg tablet 25 mg PO .MORNING 10/04/24 12/13/24 History atorvastatin 80 mg tablet 80 mg PO DAILY 12/13/24 12/13/24 History lisinopril 20 mg tablet 20 mg PO DAILY 12/13/24 12/13/24 History metoprolol succinate 25 mg 25 mg PO DAILY 12/13/24 12/13/24 History tablet,extended release 24 hr Allergies Allergy/AdvReac Type Severity Reaction Status Date / Time No Known Allergies Allergy Verified 12/13/24 13:22 Exam Const: General: cooperative Resp: Effort & Inspection: normal respiratory effort Cardio: Rate: regular rate Assessment and Plan Assessment and plan (1) Lesion of bladder: Code(s): N32.9 - Bladder disorder, unspecified Status: Acute Assessment and Plan: Proceed with TURBT, possible bilateral retrogrades iwth stent placement.
--- NOTE | 2024-12-21 07:35 | WPDHPUPDATE1 ---
History and Physical Update Update Date/Time: 12/21/24 07:35 History and Physical has been reviewed, including an updated exam of the patient. There are NO changes in the patient's condition. Risks, benefits, and alternatives have been discussed and questions answered. Patient agrees to proceed with procedure.
[2024-12-21] MEDS: LACTATED RINGERS 1,000 ML 30 ML IV CONT (08:45)
[2024-12-21 09:13] LABS: Basophils Percent Auto 0.8 % (0.2-1.2); Eosinophils Absolute Auto 0.2 K/mm3 (0-0.3); Eosinophils Percent Auto 4.7 % (0-4.4); Hematocrit 42.5 % (42.0-52.0); Hemoglobin 14.4 g/dL (14.0-18.0); Immature Granulocyte Absolute 0.03 K/mm3 (0.00-0.031); Immature Granulocyte Percent A 0.6 % (0-0.5); Lymphocytes Absolute Auto 1.05 K/mm3 (0.9-3.2); Lymphocytes Percent Auto 20.5 % (18.3-44.2); Mean Corpuscular HGB Conc 33.9 g/dl (32-36); Mean Corpuscular Hemoglobin 29.9 pg (26-34); Mean Corpuscular Volume 88.4 fl (80-100); Mean Platelet Volume 8.9 fl (7.4-10.4); Monocytes Absolute Auto 0.5 K/mm3 (0.1-0.6); Monocytes Percent Auto 9.6 % (2.6-8.5); Neutrophils Absolute Auto 3.3 K/mm3 (1.3-6.7); Neutrophils Percent Auto 63.8 % (45.5-73.1); Platelet Count Result 156 k/mm3 (150-375); Red Blood Count 4.81 M/mm3 (4.6-6.20); Red Cell Distribution Width 12.8 % (11.5-14.5); White Blood Count 5.1 K/mm3 (4.5-10.0)
[2024-12-21 09:32] LABS: Prothrombin Time 13.4 Seconds (11.1-14.7)
[2024-12-21 09:33] LABS: Partial Thromboplastin Time 26.1 Seconds (22.3-36.8)
[2024-12-21 09:39] LABS: Anion Gap 8 mmol/L (4-12); Blood Urea Nitrogen 30 mg/dL (9-20); Calcium 8.8 mg/dL (8.4-10.2); Carbon Dioxide 24 mmol/L (22-30); Chloride 108 mmol/L (98-107); Estimated CRCL calculation 49 ml/min; Estimated Glomerular Filt Rate 49; Glucose 104 mg/dL (65-110); Potassium 4.3 mmol/L (3.4-5.0); Sodium 140 mmol/L (137-145)
[2024-12-21] MEDS: ceFAZolin 2 GM/D5W 50 ML 2 GM/50 ML BAG IVPB (10:10)
[2024-12-21] MEDS: LIDOCAINE 2% GEL UROJET 10 ML PKG MUCOUS MEM (10:22)
--- NOTE | 2024-12-21 11:07 | W.PM.PROC2 ---
Procedure Note - Detailed Date of Procedure 12/21/24 Pre-op Diagnosis Bladder Lesion Post-op Diagnosis Same Procedure Performed Cystoscopy with bladder biopsy and fulguration, bilateral retrograde pyelograms, distal left ureteroscopy, transurethral resection of prostate, catheter placement Surgeon Juan Cee MD Anesthesia General Description of Procedure Patient was taken the operative suite correctly identified. Once anesthesia was obtained was placed in dorsal lithotomy position and prepped draped usual sterile fashion. Twenty-two [place] scope was inserted the bladder direct vision. He has some residual lateral lobe hypertrophy. Couple of the lobes are sort of pushing into the bladder. Upon entering the bladder there is 1 to 2+ trabeculation. He does have this irregularity of the trigone area which appears sort edematous or inflamed. No discrete papillary tumors noted. Bilateral pyelograms were then performed. The distal ureters appeared somewhat narrow. I did manipulate a wire into the distal left ureteral orifice and placed a rigid ureteral scope in. Again there was simply edema present no evidence of tumors. He had no evidence of hydronephrosis on a prior scan and there was no evidence of hydronephrosis at this time. Twenty-four [place] resectoscope sheath was then inserted. Resected the mid trigonal area posterior floor as a specimen. I fulgurated the base. Given that he was having significant irritative and obstructive symptoms I went ahead and resected the prostate. This was done from the bladder neck to the verumontanum. As I resected it was noted that some of the magaly were very close to the bladder neck and possibly causing some of the irritation. Fulguration was accomplished using a ball electrode again. Chips were sent for analysis. 2% viscous lidocaine was inserted into the urethra. Twenty-four three-way was placed with 15 cc in the balloon. He was taken recovery stable condition will be admitted overnight for CBI. This completes dictation. Please send a copy of op note to my office. Estimated Blood Loss 0 Drains Yes Packing No Pathology Yes Complications No immediate complications Condition Stable Disposition PACU
--- NOTE | 2024-12-21 13:41 | ADMGEN ---
This patient, Aurelia Zambrano, was admitted to 3 [facility] Surg Room 316-02. Patient/family oriented to hospital policies and general routines including ID bracelet, bed and alarms, visiting hours, pain management, procedures, bathroom and other care routines, personal items, smoking policy, room service/diet, and visiting hours. Information on how to activate the Rapid Response Team has been discussed. Patient/Family are encouraged to report perceived risks to care and to ask questions if they do not understand what they are told or what they should do.
[2024-12-21] MEDS: ceFAZolin 1 GM/NS 50 ML 1 GM/50 ML BAG IVPB (17:02)
[2024-12-21] MEDS: DOCUSATE SODIUM 100 MG CAPSULE PO (17:02)
[2024-12-22 00:28] VITALS: BP 112/79; PULSE 88; RESP 16; TEMP 37; O2SAT 95
[2024-12-22] MEDS: ceFAZolin 1 GM/NS 50 ML 1 GM/50 ML BAG IVPB (02:19)
[2024-12-22 03:52] VITALS: BP 121/69; PULSE 89; RESP 16; TEMP 37; O2SAT 94
[2024-12-22 06:23] LABS: Hematocrit 43.9 % (42.0-52.0); Hemoglobin 14.6 g/dL (14.0-18.0)
[2024-12-22 06:38] LABS: Anion Gap 8 mmol/L (4-12); Blood Urea Nitrogen 22 mg/dL (9-20); Calcium 8.7 mg/dL (8.4-10.2); Carbon Dioxide 29 mmol/L (22-30); Chloride 103 mmol/L (98-107); Estimated CRCL calculation 49 ml/min; Estimated Glomerular Filt Rate 48; Glucose 108 mg/dL (65-110); Potassium 4.8 mmol/L (3.4-5.0); Sodium 140 mmol/L (137-145)
[2024-12-22] MEDS: EMPAGLIFLOZIN 25 MG TABLET BY MOUTH (09:51)
[2024-12-22] MEDS: CEPHALEXIN 500 MG CAPSULE PO (09:51)
[2024-12-22] MEDS: ATORVASTATIN 40 MG TABLET 80 MG PO (09:51)
[2024-12-22] MEDS: DOCUSATE SODIUM 100 MG CAPSULE PO (09:51)
[2024-12-22 10:15] VITALS: BP 108/71; PULSE 80; RESP 16; TEMP 36.8; O2SAT 93
--- NOTE | 2024-12-22 11:30 | PM.DS ---
DS: Admitting Diagnosis Discharge Date 12/22/2024 Admitting Diagnosis 74 yr old male with history of PVP and Urolift with unusual appearing trigonal area and irritative voiding symptoms. DS: Discharge Diagnosis Discharge Diagnosis (1) Lesion of bladder: Code(s): N32.9 - Bladder disorder, unspecified Status: Acute DS: Summary Hospital Course Reason for hospitalization: Post-operative hospital admission s/p cystoscopy with bladder biopsy and fulguration, bilateral retrograde pyelograms, distal left ureteroscopy, transurethral resection of prostate, catheter placement with Dr. Cee 12/21/2024. Hospital Course: Patient admitted overnight for continuous bladder irrigation following TURP and bladder biopsy. Urine is draining clear yellow on slow CBI this morning. He denies pain, nausea, vomiting. No issues with catheter overnight. Hgb stable. Renal function near baseline. Patient to discharge home with indwelling Zayas catheter. Follow-up on 12/27/24 for indwelling Zayas catheter removal. We discussed need for ER evaluation if he developed gross hematuria with clots that obstruct the catheter or fever. Status at Discharge Functional status at discharge: independent ambulation Overall status at discharge: patient is progressing back to baseline Time Spent with Patient Time attestation: Total time spent providing and/or coordinating discharge services: Time spent: Less than 30 minutes (18minutes) Exam Const: General: comfortable and no acute distress Resp: Effort & Inspection: normal respiratory effort GI: GI Palp: Yes Soft to palpation Urinary Catheter: Urinary Catheter: patent and draining and urine clear Skin: General skin exam: normal color Psych: Mental Status: mental status grossly normal DS: Data Data Completed and Pending Completed studies during hospitalization: Pending at discharge 12/21/24 10:39 Surgical [PTH] Routine Surgical [PTH] Routine Labs on day of discharge: Labs from last 24 hours 12/22/24 05:48 Hgb 14.6 Hct 43.9 Sodium 140 Potassium 4.8 Chloride 103 Carbon Dioxide 29 Anion Gap 8 BUN 22 H Creatinine 1.45 H Estim Creat Clear Calc 49 Estimated GFR 48 L Glucose 108 Calcium 8.7 Discharge Plan Discharge Patient Disposition: Home Discharge Instructions: If urine is clear, resume home Eliquis 12/24/24. If urine is still bloody on Friday, continue to hold Eliquis through the weekend and resume on 12/27. Zayas catheter removal in office 12/27/24. desk representative staff to call with appointment time. Patient Language: [place] Stand Alone Forms: Avoid NSAIDs, General Discharge Instructions Follow-up/Referrals: Juan Cee MD [Physician] - 12/27/24 (Office visit for Zayas catheter removal) Discharge Medications: New cephalexin 500 mg Capsule 500 mg PO QID 6 Days Qty: 24 0RF docusate sodium 100 mg Capsule 100 mg PO BID 7 Days Qty: 14 0RF acetaminophen 500 mg capsule 500 mg PO Q4-6H PRN (Reason: pain) 3 Days Qty: 2 0RF Continued Entresto 24-26 mg tablet 1 tablet PO BID Patient Comments: TAKES 1/2 TAB BID oxybutynin chloride 15 mg tablet extended release 24hr 15 mg PO DAILY spironolactone 25 mg tablet 25 mg PO .MORNING dapagliflozin propanediol [Farxiga] 10 mg tablet 10 mg PO DAILY atorvastatin 80 mg tablet 80 mg PO DAILY metoprolol succinate 25 mg tablet extended release 24 hr 25 mg PO DAILY Held Eliquis 5 mg tablet 5 mg PO Q12H Hold Instructions: Resume on 12/24/24.
== END 2024-12-22 13:05 | disposition home or self-care (01) ==
LOC: ANHSURGERY 08:17 → ANH3MEDSUR 12:17
PROVIDERS: Visit Provider Urology
PROC: 0TBB8ZZ Excision of Bladder, Via Natural or Artificial Opening Endoscopic (ICD-10-PCS; CPT 52601; principal; 2024-12-21 10:30)
PROC: (CPT 52352; 2024-12-21 10:30)
DX: N30.80 Other cystitis without hematuria (principal); N40.0 Benign prostatic hyperplasia without lower urinary tract symptoms; I10 Essential (primary) hypertension; G47.33 Obstructive sleep apnea (adult) (pediatric); I25.2 Old myocardial infarction; I63.9 Cerebral infarction, unspecified; I25.10 Atherosclerotic heart disease of native coronary artery without angina pectoris; I48.91 Unspecified atrial fibrillation; E66.9 Obesity, unspecified; Z68.33 Body mass index [BMI] 33.0-33.9, adult; Z79.01 Long term (current) use of anticoagulants; Z79.84 Long term (current) use of oral hypoglycemic drugs; Z98.890 Other specified postprocedural states; Z95.5 Presence of coronary angioplasty implant and graft; Z87.438 Personal history of other diseases of male genital organs
CPT/HCPCS: 52601; 36415; 74420; 80048; 85014; 85018; 85025; 85610; 85730; 88305; A9270; C1758; C1769; C1894; J0690; J2003; J2405; J2704; J3010; J7120; Q9966